=== PATIENT | male | born 1965 | race Caucasian/White ===

== ENCOUNTER 2017-12-18 18:54 | Inpatient (IN) ==
[2017-12-18] MEDS ORDERED: Naloxone 0.4 MG/ML INJ IVP PRN (21:56)
[2017-12-18] MEDS ORDERED: *HR* LORazepam 2 MG/ML VIAL IVP PRN ×4 (21:58→22:25)
[2017-12-18] MEDS ORDERED: Ketorolac 15 MG/ML VIAL IVP ONE (22:03)
[2017-12-18] MEDS ORDERED: Potassium Chloride 40 MEQ, Lidocaine 1% 2 ML in D5% in Water 500 ML IVPB ONE (22:10)
[2017-12-18 22:42] LABS: Potassium,Urine 19.9 mEq/L; Sodium, Urine 76.8 mEq/L
--- NOTE | 2017-12-18 22:44 | Internal Med History&Physical ---
Date of Encounter: 12/19/17 Time of Encounter: 22:00 Assessment and Plan (1) Hyponatremia Current visit: Yes Status: Acute Acute hyponatremia [facility] neurological [place] - generalized seizure The patient presented with seizure and was found to have Serum Sodium of 114 This appears to be euvolemic hyponatremia, possibly due to increased free water vs alcoholism Prior to arrival at [facility], patient received 3% saline, which brought his serum sodium to 118 on arrival Patient is placed in ICU for repletion of sodium and other serum electrolytes Consult to nephrology, Dr. Coleman recommendations: -Slow repletion of sodium, <6-8 in first 24/hr to goal of at least 120 -Observe closely in order to prevent overcorrection, watch for urine output -Order TSH, Serum fasting cortisol, uric acid, Urine electrolytes We will monitor BMP q1h until sodium is regular, and then will transition to q4h (2) Generalized seizure Current visit: Yes Status: Acute Generalized seizure, tonic-clonic, witnessed Likely secondary to hyponatremia vs. EtOH withdrawal Patient says he's never had a similar episode Received phenytoin in ED, is on CIWA protocol with PRN ativan We will provide cautious nutrient supplementation Neuro check q2 hour (3) Fever Current visit: Yes Status: Acute Fever 103.1, likely secondary to seizure activity Although the patient has fever, tachycardia, tachypnea, and borderline WBC, it is likely due to other causes These criteria can be explained by EtOH withdrawal + postictal reactive inflammatory response We have given the patient tylenol and mortin which seem to be effective in managing the fever We will check blood cultures, respiratory viral panel, repeat CXR, and UA for cryptogenic sources of infection We will hold antibiotic treatment pending evidence of infection Qualifiers: Fever type: unspecified Qualified Code(s): R50.9 - Fever, unspecified (4) Alcoholism /alcohol abuse Current visit: Yes Status: Acute Alcohol dependence, Admit to 6-7 beers per day On arrival, patient had serum EtOH of 38, apparently refused EMS transport without a beer before We placed the patient on CIWA protocol, and will monitor closely. Treat with Ativan for symptoms. The patient did present with generalized seizure which may have occurred due to EtOH withdrawal vs. hyponatremia (5) Protein-calorie malnutrition Current visit: Yes Status: Chronic Protein-calorie malnutrition We will provide nutrition consult Supplement relevant nutrients Qualifiers: Protein-calorie malnutrition severity: moderate Qualified Code(s): E44.0 - Moderate protein-calorie malnutrition (6) Transaminitis Current visit: Yes Status: Acute Transaminitis, AST 64/ALT 36 The patient is a chronic abuser of EtOH, which is the likely source There is no obvious hepatomegaly on exam, no RUQ pain Patient does not appear jaundiced, bilirubin is in normal limits, Ammonia within normal limits We will continue to watch, check another hepatic panel in the morning (7) DVT prophylaxis Current visit: Yes Status: Acute SQ Heparin Internal Medicine - H&P: HPI Chief complaint: Headache and vision changes Admitted From: Emergency Dept Plans for Post Hospital Care: Home History of present illness: Mr. Dudley is a 52 year old male with questionable medical history significant for hypertension, alcohol dependence who presented to the [place] ED with what he says her symptoms of headache and visual changes. He associated these symptoms with high blood pressure, which he says that he has had issues with before. It has been going on for several years he said, and he has these episodes pretty frequently. He says that he has had problems with chronic headaches, visual changes that come and go. Today when he noticed the symptoms , he did check his blood pressure which was extremely elevated and he says. He was transported to the hospital by EMS, at which time he demanded that he continue to drink a beer prior to transport. He denies any losses of consciousness, confusion. He says that he has never had any seizures before. He does admit to frequent falls, with the last fall being approximately 1 month ago. He says they are generally mechanical in nature because he has what he calls a "bad hip". He denies any trauma or hits to the head. Apparently, upon arrival to the [place] ED, the patient entered a generalized tonic-clonic seizure which lasted for approximately 30 seconds. Labs at the ED demonstrated hyponatremia with a serum sodium of 114. He was initiated on phenytoin and hypertonic saline prior to transfer to the ICU and [facility]. At this time he says that he continues to have a mild headache but otherwise is feeling relatively okay. Past Med Surg Social Fam HX - Past Medical History Medical history: diabetes, hypertension Psychiatric history: no psych history - Social History Smoking Status: Current every day smoker Alcohol use: heavy, recent Drug use: unknown Internal Medicine - H&P: Meds No Known Home Drugs 12/18/17 [History] 3 Allergy/AdvReac Type Severity Reaction Status Date / Time No Known Allergies Allergy Verified 12/18/17 15:47 All Systems PM: A 10-system review of systems was performed and is negative for pertinent findings except as documented above in the HPI. Review of systems: Constitutional: Denies fevers, chills, weight loss, generalized fatigue Head/Neck: Admits to mild headache. Denies neck stiffness EENT: Denies vision changes/blurriness, rhinorrhea, congestion, sore throat CVS: Admits to chest pain which is intermittent, Denies palpitations, HICKS, orthopnea, edema, PND Pulm: Denies SOB, cough, sputum, hemoptysis, wheezing GI: Denies abdominal pain, nausea, vomiting, diarrhea, constipation, melena, hematemasis : Admits to urinary incontinence, no other symptoms Heme: Denies ease of bleeding or bruising MSK: Denies joint pain, limited ROM Skin: Denies rashes, ulcers, color changes Neuro: Admits to RODRIGEZ, visual changes, tremor. focal deficits, ataxia - Constitutional Vitals: Pulse 104 12/18/17 22:11 Exam: Gen.: Vitals noted. No acute distress. AAOx3 but mild delay in reaction time and requires frequent redirection. There is no asterixis HEENT: Touches chin to chest without pain, Oropharynx clear, Normocephalic, atraumatic. Pupils anicteric Neck: Supple. No adenopathy. Cardiac: RRR, no murmur, +S1/S2 Pulmonary: CTA bilaterally, no wheezes, rales or rhonchi, equal chest expansion Abdomen: soft, nontender, BS noted, no guarding Back: Nontender throughout. Extremities: no BLE edema, nontender calf, no cyanosis or clubbing Neuro: A&Ox3, PERRL/EOMI with horizontal nystagmus present, moves all extremities, no focal deficits. Tremor is present in all extremities Psych: Appropriate mood and behavior Internal Med - H&P Results - Labs CBC & Chem 7: 12/18/17 22:36 12/19/17 01:49
[2017-12-18 22:47] LABS: Basophils % 0.2 %; Hematocrit 36.4 % (37.5-50.1); Hemoglobin 13.2 g/dL (12.9-16.9); Immature Granulocytes % 0.6 % (0-4); Lymphocytes % 7.9 %; Mean Corpuscular HGB Conc 36.3 g/dL (31.6-35.5); Mean Corpuscular Hemoglobin 33.4 pg (28.0-33.3); Mean Corpuscular Volume 92.2 fL (83.0-100.0); Mean Platelet Volume 8.9 fL (9.4-12.4); Monocytes # 0.6 K/mcL (0.0-1.3); Monocytes % 5.2 %; Neutrophils # 10.4 K/mcL (1.6-8.9); Platelet Count 126 K/mcL (140-400); Red Blood Count 3.95 M/mcL (4.19-5.50); Red Cell Distribution Width 12.5 % (11.5-14.5); Segmented Neutrophils % 86.1 %
[2017-12-18 23:15] LABS: Alanine Aminotransferase 35 Units/L (7-52); Albumin 3.1 g/dL (3.5-5.7); Alkaline Phosphatase 76 Units/L (34-104); Aspartate Amino Transferase 69 Units/L (13-39); BUN/Creatinine Ratio 4 (6-26); Bilirubin,Direct 0.2 mg/dL (0.0-0.2); Bilirubin,Indirect 0.5 mg/dL (0.0-1.2); Bilirubin,Total 0.7 mg/dL (0.3-1.0); Blood Urea Nitrogen 2 mg/dL (6-20); Calcium 7.9 mg/dL (8.6-10.3); Carbon Dioxide 23 mEq/L (23-29); Chloride 89 mEq/L (98-107); Globulin 3.1 g/dL (2.4-3.5); Glucose 97 mg/dL (70-105); Magnesium 1.6 mg/dL (1.6-2.6); Osmolality,Calculated 246 (280-300); Potassium 3.2 mEq/L (3.5-5.1); Sodium 120 mEq/L (136-145); Total Protein 6.2 g/dL (6.4-8.9); eGFR For African Americans > 60 (> 60); eGFR For Non-African Americans > 60 (> 60)
[2017-12-18 23:23] LABS: ABG Base Excess -2 mEq/L (-2 to 3); ABG HCO3 21 mEq/L (21-27); ABG Oxygen Saturation 96 % (95-98); ABG PCO2 29 mmHg (35-45); ABG PH 7.47 pH Units (7.32-7.45); ABG PO2 74 mmHg (85-104); ABG TCO2 22 mEq/L (20-26)
[2017-12-19 00:57] LABS: Uric Acid 3.7 mg/dL (2.3-7.6)
[2017-12-19 01:01] LABS: BUN/Creatinine Ratio 6 (6-26); Blood Urea Nitrogen 2 mg/dL (6-20); Calcium 7.5 mg/dL (8.6-10.3); Carbon Dioxide 20 mEq/L (23-29); Chloride 90 mEq/L (98-107); Glucose 104 mg/dL (70-105); Osmolality,Calculated 242 (280-300); Potassium 2.9 mEq/L (3.5-5.1); Sodium 118 mEq/L (136-145); eGFR For African Americans > 60 (> 60); eGFR For Non-African Americans > 60 (> 60)
[2017-12-19] MEDS ORDERED: 0.9 % Sodium Chloride 1,000 ML IVC SCH (01:15)
[2017-12-19 01:20] LABS: Thyroid Stimulating Hormone 0.858 mcIU/mL (0.340-5.600)
[2017-12-19] MEDS: 0.9 % Sodium Chloride 1,000 ML IVC SCH ×2 (01:42→14:42)
[2017-12-19 02:18] LABS: BUN/Creatinine Ratio 6 (6-26); Blood Urea Nitrogen 2 mg/dL (6-20); Calcium 7.6 mg/dL (8.6-10.3); Carbon Dioxide 21 mEq/L (23-29); Chloride 92 mEq/L (98-107); Glucose 120 mg/dL (70-105); Osmolality,Calculated 243 (280-300); Potassium 3.2 mEq/L (3.5-5.1); Sodium 118 mEq/L (136-145); eGFR For African Americans > 60 (> 60); eGFR For Non-African Americans > 60 (> 60)
[2017-12-19 03:25] LABS: BUN/Creatinine Ratio 6 (6-26); Blood Urea Nitrogen 2 mg/dL (6-20); Calcium 7.4 mg/dL (8.6-10.3); Carbon Dioxide 18 mEq/L (23-29); Chloride 93 mEq/L (98-107); Glucose 115 mg/dL (70-105); Osmolality,Calculated 243 (280-300); Potassium 3.7 mEq/L (3.5-5.1); Sodium 118 mEq/L (136-145); eGFR For African Americans > 60 (> 60); eGFR For Non-African Americans > 60 (> 60)
[2017-12-19 04:35] LABS: Adenovirus Not Detected (Not Detect); Coronavirus 229E Not Detected (Not Detect); Coronavirus HKU1 Not Detected (Not Detect); Coronavirus NL63 Not Detected (Not Detect); Coronavirus OC43 Not Detected (Not Detect); Human Metapneumovirus Not Detected (Not Detect)
[2017-12-19 04:36] LABS: Bordetella Pertussis Not Detected (Not Detect); Chlamydophila pneumoniae Not Detected (Not Detect); Human Rhinovirus/Enterovirus Not Detected (Not Detect); Influenza A Subtype 2009 H1 Not Detected (Not Detect); Influenza A Untypeable Not Detected (Not Detect); Influenza B ***DETECTED*** (Not Detect); Mycoplasma pneumoniae Not Detected (Not Detect); Parainfluenza Virus 1 Not Detected (Not Detect); Parainfluenza Virus 2 Not Detected (Not Detect); Parainfluenza Virus 3 Not Detected (Not Detect); Parainfluenza Virus 4 Not Detected (Not Detect); Respiratory Syncytial Virus Not Detected (Not Detect)
[2017-12-19] MEDS: *HR* Heparin 5,000 UNIT/ML VIAL SQ SCH ×2 (05:45→16:50)
[2017-12-19 06:25] LABS: BUN/Creatinine Ratio 5 (6-26); Blood Urea Nitrogen 2 mg/dL (6-20); Calcium 7.9 mg/dL (8.6-10.3); Carbon Dioxide 22 mEq/L (23-29); Chloride 94 mEq/L (98-107); Glucose 83 mg/dL (70-105); Osmolality,Calculated 245 (280-300); Potassium 3.6 mEq/L (3.5-5.1); Sodium 120 mEq/L (136-145); eGFR For African Americans > 60 (> 60); eGFR For Non-African Americans > 60 (> 60)
[2017-12-19] MEDS: Thiamine (B-1) 100 MG TABLET PO SCH (07:31)
[2017-12-19] MEDS: Ibuprofen 400 MG TABLET PO PRN ×2 (07:32→19:44)
[2017-12-19] MEDS: Vitamin B Complex/Vit C/Vit E 1 EACH TABLET PO SCH (07:32)
[2017-12-19] MEDS: Folic Acid 1 MG TABLET PO SCH (07:32)
[2017-12-19 09:35] LABS: BUN/Creatinine Ratio 7 (6-26); Blood Urea Nitrogen 2 mg/dL (6-20); Calcium 7.7 mg/dL (8.6-10.3); Carbon Dioxide 19 mEq/L (23-29); Chloride 93 mEq/L (98-107); Glucose 88 mg/dL (70-105); Osmolality,Calculated 244 (280-300); Potassium 3.2 mEq/L (3.5-5.1); eGFR For African Americans > 60 (> 60); eGFR For Non-African Americans > 60 (> 60)
[2017-12-19 09:47] LABS: Bilirubin,Urine Negative (Negative); Blood,Urine Small (Negative); Clarity,Urine Cloudy (Clear); Color,Urine Yellow (Yellow); Glucose,Urine (UA) Normal (Normal); Ketones,Urine Negative (Negative); Leukocyte Esterase,Urine Large (Negative); Nitrite,Urine Negative (Negative); PH,Urine 6.5 pH Units (5.0-8.0); Protein,Urine Negative (Neg-Trace); Specific Gravity,Urine 1.013 (1.010-1.025); Urobilinogen,Urine Normal (Normal)
[2017-12-19 09:48] LABS: Hyaline Casts,Urine None Seen per lpf (None-Few); Squamous Epithelial Cell,Urine Moderate per lpf (None-Few); WBC,Urine TNTC per hpf (0-3)
[2017-12-19 10:01] LABS: Bacteria,Urine Moderate per hpf (None-Few); RBC,Urine 0-3 per hpf (0-3)
[2017-12-19 10:25] LABS: BUN/Creatinine Ratio 6 (6-26); Blood Urea Nitrogen 2 mg/dL (6-20); Calcium 7.7 mg/dL (8.6-10.3); Carbon Dioxide 19 mEq/L (23-29); Chloride 94 mEq/L (98-107); Glucose 89 mg/dL (70-105); Osmolality,Calculated 248 (280-300); Potassium 3.1 mEq/L (3.5-5.1); Sodium 121 mEq/L (136-145); eGFR For African Americans > 60 (> 60); eGFR For Non-African Americans > 60 (> 60)
[2017-12-19 12:45] LABS: BUN/Creatinine Ratio 6 (6-26); Blood Urea Nitrogen 2 mg/dL (6-20); Calcium 7.9 mg/dL (8.6-10.3); Carbon Dioxide 20 mEq/L (23-29); Chloride 95 mEq/L (98-107); Glucose 82 mg/dL (70-105); Osmolality,Calculated 249 (280-300); Potassium 3.2 mEq/L (3.5-5.1); Sodium 122 mEq/L (136-145); eGFR For African Americans > 60 (> 60); eGFR For Non-African Americans > 60 (> 60)
--- NOTE | 2017-12-19 13:31 | Nephrology Consult Note ---
Date of Encounter: 12/19/17 Time of Encounter: 12:00 Assessment and Plan (1) Hyponatremia Current Visit: Yes Status: Acute Acute symptomatic hyponatremia in the setting of EtOH abuse and poor nutritional status likely beer potomania Agree with correction of approx. 6-8 in the first 24hrs since initial presentation in [facility] Agree with IVF with 0.9 saline for now Needs nutritional supplements as well, dietitian consulted and will order per nurse Urine and serum osm noted Urine sodium noted will add salt tabs to regimen (2) Alcoholism /alcohol abuse Current Visit: Yes Status: Acute Per primary team with ativan regimen. Folate, MVI and thiamine on board History of Present Illness - Reason for Consult Consult date: 12/19/17 hyponatremia Requesting physician: Leoncio Mathews - History of Present Illness 52 y o male with PMH of EtOH abuse and admitted overnight with headaches and dizziness as a transfer from [facility] where he was noted with sodium of 114. He received hypertonic saline and on presentation to [facility], sodium was 120 fluctuating from 118 1-120 overnight on 0.9 saline complicated by seizures overnight. Pt seen and examined today and able to answer some questions though restless and a poor historian. Most of the information obtained from records. No family present at bedside. Previous labs from 2013 showed sodium at 129 then. He apparently drinks up to 7 beers daily. Past Med Surg Social Fam HX - Past Medical History Medical history: diabetes, hypertension Psychiatric history: no psych history - Past Surgical History Surgical History: cholecystectomy - Social History Smoking Status: Current every day smoker Packs per day: 2 Alcohol use: heavy, recent Drug use: unknown Medications and Allergies No Known Home Drugs 12/18/17 [History] 3 Allergy/AdvReac Type Severity Reaction Status Date / Time No Known Allergies Allergy Verified 12/18/17 15:47 Review of Systems All Systems: reviewed and no additional remarkable complaints except as stated ( 10 systems reviewe and noted in HPI) Exam - Vital Signs Vital signs: Initial Vital Signs Temp Pulse Resp BP Pulse Ox 102.2 F H 104 24 150/90 96 12/18/17 22:08 12/18/17 22:08 12/18/17 22:08 12/18/17 22:08 12/18/17 22:08 Vital Signs - Last 8 Hours Temp Pulse Resp BP Pulse Ox 12/19/17 12:00 87 23 102/69 12/19/17 11:00 89 16 105/68 93 12/19/17 10:00 103 19 126/88 94 12/19/17 09:00 99.1 F 103 18 122/81 95 12/19/17 08:00 101.1 F H 117 15 118/91 94 12/19/17 07:00 105 19 140/91 94 12/19/17 06:00 117 24 143/99 95 Intake and Output 12/18/17 12/19/17 12/19/17 23:59 07:59 15:59 Intake Total 50 / 50 972 / 972 340 / 340 Output Total 900 / 900 1180 / 1180 460 / 460 Balance -850 / -850 -208 / -208 -120 / -120 Intake: IV Fluids 922 / 922 0.9 % Sodium Chloride 1,000 ML 350 / 350 @ 85 mls/hr IVC .[id number] [facility] Rx #:[id number] Magnesium Sulfate Premix 2gm/ 50 / 50 50mL 2 gm In 50 ml @ 48.077 mls /hr IVPB ONCE ONE Rx#: [id number] KCl 40 MEQ Xylocaine 2 ML In 522 / 522 Dextrose 5% 500 ML @ 130.5 mls/ hr IVPB ONCE ONE Rx#:[id number] Oral 50 / 50 50 / 50 340 / 340 Output: Urine 200 / 200 Catheter 700 / 700 1180 / 1180 460 / 460 Other: Meal Breakfast Percent of Meal Consumed 25% Weight 66.4 kg Blood Glucose* 102 93 - General Appearance General appearance: chronically ill (NAD) EENT: ATNC, mucous membranes dry Neck: no JVD, supple Cardiology: no edema, normal S1, normal S2 Gastrointestinal: no tenderness, no guarding Integumentary: warm and dry Neurologic: no focal deficit Musculoskeletal: no deformities Psychiatric: cooperative Results - Lab Results 12/18/17 22:36 12/19/17 12:22 Most recent lab results ABG pH 7.47 pH Units (7.32-7.45) H 12/18/17 23:18 ABG pCO2 29 mmHg (35-45) L 12/18/17 23:18 ABG pO2 74 mmHg (85-104) L 12/18/17 23:18 ABG HCO3 21 mEq/L (21-27) 12/18/17 23:18 ABG O2 Saturation 96 % (95-98) 12/18/17 23:18 Calcium 7.9 mg/dL (8.6-10.3) L 12/19/17 12:22 Magnesium 1.6 mg/dL (1.6-2.6) 12/18/17 22:36 Urine Creatinine 32 mg/dL 12/18/17 22:10 Urine Sodium 76.8 mEq/L 12/18/17 22:10 Consult Discharge Plan - Plan Referrals: Jozef Lee DO [Primary Care Provider] -
--- NOTE | 2017-12-19 14:24 | Internal Med Progress Note ---
Date of Encounter: 12/19/17 Time of Encounter: 11:00 - Assessment and plan (1) Hyponatremia Current Visit: Yes Status: Acute Assessment and plan: -Sodium gradually improving on normal saline IV fluids -We will continue to monitor -Nephrology consulted and appreciate recommendations. (2) Generalized seizure Current Visit: Yes Status: Acute Assessment and plan: -Suspect secondary to hyponatremia versus alcohol withdrawal -Patient with no further episodes -We will continue to monitor (3) Influenza B Current Visit: Yes Status: Acute Assessment and plan: -Continue a 5 day course of Tamiflu (4) Alcoholism /alcohol abuse Current Visit: Yes Status: Acute Assessment and plan: -Continue CIWA protocol (5) Protein-calorie malnutrition Current Visit: Yes Status: Chronic Assessment and plan: -Nutrition consulted and appreciate recommendations Qualifiers: Protein-calorie malnutrition severity: moderate Qualified Code(s): E44.0 - Moderate protein-calorie malnutrition (6) DVT prophylaxis Current Visit: Yes Status: Acute Assessment and plan: Subcutaneous heparin - Subjective Interval history: Patient admitted with seizures secondary to hyponatremia versus alcohol withdrawal Sodium gradually improving and pacer without any further seizures Patient is influenza B+ - Constitutional Vitals: Temp Pulse Resp BP Pulse Ox 99.1 F 87 23 102/69 93 12/19/17 09:00 12/19/17 12:00 12/19/17 12:00 12/19/17 12:00 12/19/17 11:00 - Respiratory Respiratory exam: Present: CTAB. Absent: accessory muscle use, rales, rhonchi, wheezes - Cardiovascular Cardiovascular exam: Present: RRR, +S1, +S2. Absent: diastolic murmur, gallop, rubs, systolic murmur Internal Medicine: Result - Labs CBC & Chem 7: 12/18/17 22:36 12/19/17 12:22 Labs: Short CBC 12/18/17 Range/Units 22:36 WBC 12.1 H (4.3-11.1) K/mcL Hgb 13.2 (12.9-16.9) g/dL Hct 36.4 L (37.5-50.1) % Plt Count 126 L (140-400) K/mcL Neutrophils # 10.4 H (1.6-8.9) K/mcL BMP 02/16/18 02/17/18 02/17/18 22:36 00:00 01:49 Sodium 120 L* 118 L* 118 L* Potassium 3.2 L 2.9 L 3.2 L Chloride 89 L 90 L 92 L Carbon Dioxide 23 20 L 21 L BUN 2 L 2 L 2 L Creatinine 0.45 L 0.35 L 0.34 L Glucose 97 104 120 H Calcium 7.9 L 7.5 L 7.6 L 12/19/17 12/19/17 12/19/17 02:48 05:47 08:10 Sodium 118 L* 120 L* 119 L* Potassium 3.7 3.6 3.2 L Chloride 93 L 94 L 93 L Carbon Dioxide 18 L 22 L 19 L BUN 2 L 2 L 2 L Creatinine 0.33 L 0.37 L 0.29 L Glucose 115 H 83 88 Calcium 7.4 L 7.9 L 7.7 L 12/19/17 12/19/17 10:02 12:22 Sodium 121 L 122 L Potassium 3.1 L 3.2 L Chloride 94 L 95 L Carbon Dioxide 19 L 20 L BUN 2 L 2 L Creatinine 0.31 L 0.31 L Glucose 89 82 Calcium 7.7 L 7.9 L Cardiac Enzymes 12/19/17 12/19/17 Range/Units 00:00 05:46 Troponin I < 0.03 < 0.03 (< 0.04) ng/mL Liver Function 12/18/17 Range/Units 22:36 Total Bilirubin 0.7 (0.3-1.0) mg/dL Direct Bilirubin 0.2 (0.0-0.2) mg/dL AST 69 H (13-39) Units/L ALT 35 (7-52) Units/L Alkaline Phosphatase 76 (34-104) Units/L Albumin 3.1 L (3.5-5.7) g/dL Urine 12/18/17 Range/Units 22:10 Urine Color Yellow (Yellow) Urine Clarity Cloudy A (Clear) Urine pH 6.5 (5.0-8.0) pH Units Ur Specific [place] 1.013 (1.010-1.025) Urine Protein Negative (Neg-Trace) mg/dL Urine Glucose (UA) Normal (Normal) mg/dL - ABG Interpretation ABG results: ABG ABG pH 7.47 pH Units (7.32-7.45) H 12/18/17 23:18 ABG pCO2 29 mmHg (35-45) L 12/18/17 23:18 ABG pO2 74 mmHg (85-104) L 12/18/17 23:18 ABG O2 Saturation 96 % (95-98) 12/18/17 23:18 - Impressions Impressions Chest X-Ray 12/18/17 22:22 IMPRESSION: Stable small focus of ill-defined density just above the left hemidiaphragm. Upright two view chest would be more helpful Otherwise, there are no findings diagnostic of pulmonary edema or pneumonia D/ / Rom Álvarez / Rom Álvarez Interpreting Provider: Rom Álvarez Consult Discharge Plan - Plan Referrals: Jozef Lee DO [Primary Care Provider] -
[2017-12-19 14:53] LABS: BUN/Creatinine Ratio 6 (6-26); Blood Urea Nitrogen 2 mg/dL (6-20); Calcium 7.8 mg/dL (8.6-10.3); Carbon Dioxide 22 mEq/L (23-29); Chloride 96 mEq/L (98-107); Glucose 112 mg/dL (70-105); Osmolality,Calculated 253 (280-300); Potassium 2.9 mEq/L (3.5-5.1); Sodium 123 mEq/L (136-145); eGFR For African Americans > 60 (> 60); eGFR For Non-African Americans > 60 (> 60)
[2017-12-19] MEDS: Dexmedetomidine HCl 400 MCG/100 ML MLS IVC SCH (15:36)
[2017-12-19] MEDS: Nicotine 21 MG PATCH.TD24 TD SCH (15:38)
[2017-12-19 17:03] LABS: Calcium 7.9 mg/dL (8.6-10.3); Carbon Dioxide 23 mEq/L (23-29); Chloride 96 mEq/L (98-107); Potassium 3.3 mEq/L (3.5-5.1); Sodium 123 mEq/L (136-145)
[2017-12-19 17:08] LABS: BUN/Creatinine Ratio 5 (6-26); Blood Urea Nitrogen 2 mg/dL (6-20); Glucose 86 mg/dL (70-105); Osmolality,Calculated 251 (280-300); eGFR For African Americans > 60 (> 60); eGFR For Non-African Americans > 60 (> 60)
[2017-12-19 18:25] LABS: BUN/Creatinine Ratio 7 (6-26); Blood Urea Nitrogen 2 mg/dL (6-20); Calcium 7.7 mg/dL (8.6-10.3); Carbon Dioxide 21 mEq/L (23-29); Chloride 96 mEq/L (98-107); Glucose 111 mg/dL (70-105); Osmolality,Calculated 253 (280-300); Potassium 2.9 mEq/L (3.5-5.1); Sodium 123 mEq/L (136-145); eGFR For African Americans > 60 (> 60); eGFR For Non-African Americans > 60 (> 60)
[2017-12-19 18:35] LABS: Acinetobacter baumannii by PCR Not Detected (Not Detect); Candida albicans by PCR Not Detected (Not Detect); Candida glabrata by PCR Not Detected (Not Detect); Candida krusei by PCR Not Detected (Not Detect); Candida parapsilosis by PCR Not Detected (Not Detect); Candida tropicalis by PCR Not Detected (Not Detect); Enterococcus by PCR Not Detected (Not Detect); Escherichia coli by PCR Not Detected (Not Detect); Klebsiella oxytoca by PCR Not Detected (Not Detect); Klebsiella pneumoniae by PCR Not Detected (Not Detect); Pseudomonas aeruginosa by PCR Not Detected (Not Detect); Serratia marcescens by PCR Not Detected (Not Detect); Staphylococcus aureus by PCR Not Detected (Not Detect); Streptococcus agalactiae(B)PCR Not Detected (Not Detect); Streptococcus by PCR Not Detected (Not Detect); Streptococcus pneumoniae PCR Not Detected (Not Detect); Streptococcus pyogenes (A) PCR Not Detected (Not Detect); mecA Methicillin-Resist Gene Not Detected (Not Detect)
[2017-12-19] MEDS ORDERED: Vancomycin 1 EACH in 0.9 % Sodium Chloride 250 ML IVPB SCH (19:00)
[2017-12-19] MEDS ORDERED: Potassium Chloride 40 MEQ, Lidocaine 1% 2 ML in D5% in Water 500 ML IVPB ONE (19:33)
[2017-12-19 20:22] LABS: BUN/Creatinine Ratio 7 (6-26); Blood Urea Nitrogen 2 mg/dL (6-20); Calcium 7.6 mg/dL (8.6-10.3); Carbon Dioxide 21 mEq/L (23-29); Chloride 96 mEq/L (98-107); Glucose 88 mg/dL (70-105); Osmolality,Calculated 252 (280-300); Sodium 123 mEq/L (136-145); eGFR For African Americans > 60 (> 60); eGFR For Non-African Americans > 60 (> 60)
[2017-12-19 22:50] LABS: BUN/Creatinine Ratio 7 (6-26); Blood Urea Nitrogen 2 mg/dL (6-20); Calcium 7.3 mg/dL (8.6-10.3); Carbon Dioxide 22 mEq/L (23-29); Chloride 98 mEq/L (98-107); Glucose 111 mg/dL (70-105); Osmolality,Calculated 253 (280-300); Potassium 3.2 mEq/L (3.5-5.1); Sodium 123 mEq/L (136-145); eGFR For African Americans > 60 (> 60); eGFR For Non-African Americans > 60 (> 60)
[2017-12-20 00:56] LABS: BUN/Creatinine Ratio 6 (6-26); Blood Urea Nitrogen 2 mg/dL (6-20); Calcium 7.3 mg/dL (8.6-10.3); Carbon Dioxide 21 mEq/L (23-29); Chloride 98 mEq/L (98-107); Glucose 105 mg/dL (70-105); Osmolality,Calculated 253 (280-300); Potassium 3.4 mEq/L (3.5-5.1); Sodium 123 mEq/L (136-145); eGFR For African Americans > 60 (> 60); eGFR For Non-African Americans > 60 (> 60)
[2017-12-20] MEDS: 0.9 % Sodium Chloride 1,000 ML IVC SCH ×3 (03:00→23:44)
[2017-12-20 04:07] LABS: BUN/Creatinine Ratio 6 (6-26); Blood Urea Nitrogen 2 mg/dL (6-20); Calcium 7.5 mg/dL (8.6-10.3); Carbon Dioxide 22 mEq/L (23-29); Chloride 99 mEq/L (98-107); Glucose 77 mg/dL (70-105); Osmolality,Calculated 253 (280-300); Potassium 3.3 mEq/L (3.5-5.1); Sodium 124 mEq/L (136-145); eGFR For African Americans > 60 (> 60); eGFR For Non-African Americans > 60 (> 60)
[2017-12-20 04:22] LABS: Basophils % 0.3 %; Hematocrit 32.7 % (37.5-50.1); Hemoglobin 11.6 g/dL (12.9-16.9); Immature Granulocytes % 0.8 % (0-4); Immature Platelets 2.6 % (1.1-6.1); Lymphocytes % 15.8 %; Mean Corpuscular HGB Conc 35.5 g/dL (31.6-35.5); Mean Corpuscular Hemoglobin 33.6 pg (28.0-33.3); Mean Corpuscular Volume 94.8 fL (83.0-100.0); Mean Platelet Volume 8.7 fL (9.4-12.4); Monocytes # 0.6 K/mcL (0.0-1.3); Monocytes % 8.6 %; Neutrophils # 4.9 K/mcL (1.6-8.9); Platelet Count 119 K/mcL (140-400); Red Blood Count 3.45 M/mcL (4.19-5.50); Red Cell Distribution Width 12.7 % (11.5-14.5); Segmented Neutrophils % 74.5 %
[2017-12-20] MEDS: *HR* Heparin 5,000 UNIT/ML VIAL SQ SCH ×2 (05:19→15:38)
[2017-12-20 05:20] LABS: BUN/Creatinine Ratio 6 (6-26); Blood Urea Nitrogen 2 mg/dL (6-20); Calcium 7.6 mg/dL (8.6-10.3); Carbon Dioxide 20 mEq/L (23-29); Chloride 100 mEq/L (98-107); Glucose 75 mg/dL (70-105); Osmolality,Calculated 253 (280-300); Potassium 3.4 mEq/L (3.5-5.1); Sodium 124 mEq/L (136-145); eGFR For African Americans > 60 (> 60); eGFR For Non-African Americans > 60 (> 60)
[2017-12-20] MEDS ORDERED: Aminoglycoside Consult 1 EACH MC ONE (07:35)
[2017-12-20] MEDS: Folic Acid 1 MG TABLET PO SCH (08:22)
[2017-12-20] MEDS: Vitamin B Complex/Vit C/Vit E 1 EACH TABLET PO SCH (08:22)
[2017-12-20] MEDS: Nicotine 21 MG PATCH.TD24 TD SCH (08:22)
[2017-12-20] MEDS: Thiamine (B-1) 100 MG TABLET PO SCH (08:22)
[2017-12-20] MEDS: Ibuprofen 400 MG TABLET PO PRN ×2 (10:31→23:42)
[2017-12-20 10:53] LABS: Sodium 119 mEq/L (136-145)
--- NOTE | 2017-12-20 11:22 | Nephrology Progress Note ---
Date of Encounter: 12/20/17 Time of Encounter: 11:00 - Assessment and Plan (1) Hyponatremia Current Visit: Yes Status: Acute Sodium improving at 124 currently Continue IVF with NS for now Continue salt tabs Continue serial checks but can reduce frequency Needs nutritional supplements (2) Alcoholism /alcohol abuse Current Visit: Yes Status: Acute Per primary team on ativan, thiamine, folate and MVI along with ativan regimen Subjective Interval history: Pt seen and examined resting comfortably but arousable. Objective - Vital Signs Vital signs: Vital Signs Temp Pulse Resp BP Pulse Ox 12/20/17 10:00 100.6 F H 109 15 134/91 97 12/20/17 09:00 89 30 125/85 95 12/20/17 08:07 100.1 F H 12/20/17 08:00 84 28 113/69 95 12/20/17 07:00 90 22 115/85 96 12/20/17 06:00 92 20 99/81 93 12/20/17 05:00 87 22 117/81 96 12/20/17 04:00 87 18 126/84 97 12/20/17 03:00 98.9 F 79 20 102/70 97 12/20/17 02:00 78 22 98/70 96 12/20/17 01:00 89 20 115/81 94 12/20/17 00:00 90 20 107/78 97 12/19/17 23:33 98.6 F 12/19/17 23:00 82 20 103/66 97 12/19/17 22:00 90 24 93/69 94 12/19/17 21:00 100 20 121/87 96 12/19/17 20:00 105 20 118/90 94 12/19/17 19:07 101.3 F H 12/19/17 19:00 107 24 131/82 95 12/19/17 18:00 122 22 138/106 12/19/17 17:00 114 19 122/92 12/19/17 16:00 99 19 109/70 12/19/17 15:46 98.8 F 12/19/17 15:00 107 20 140/94 12/19/17 14:00 111 16 135/89 12/19/17 13:00 95 20 145/84 12/19/17 12:00 87 23 102/69 Intake and Output 02/12/20/17 12/20/17 23:59 07:59 15:59 Intake Total 300 / 300 1522 / 1522 300.8 / 300.8 Output Total 945 / 945 240 / 240 275 / 275 Balance -645 / -645 1282 / 1282 25.8 / 25.8 Intake: IV Fluids 250 / 250 1522 / 1522 60.8 / 60.8 0.9 % Sodium Chloride 1,000 ML 1000 / 1000 @ 85 mls/hr IVC .[id number] [facility] Rx #:[id number] PRECEDEX Premix 400 mcg In 100 60.8 / 60.8 ml @ 0.2 MCG/KG/HR 3.32 mls/hr IVC .Q24H [facility] Rx#:[id number] KCl 40 MEQ Xylocaine 2 ML In 522 / 522 Dextrose 5% 500 ML @ 130.5 mls/ hr IVPB ONCE ONE Rx#:[id number] Vancocin 1,000 MG In 0.9 % 250 / 250 Sodium Chloride 250 ML @ 167 mls/hr IVPB ONCE ONE Rx#: [id number] Oral 50 / 50 0 / 0 240 / 240 Output: Catheter 945 / 945 240 / 240 275 / 275 Other: Meal Breakfast Percent of Meal Consumed 15% Weight 63.68 kg Blood Glucose* 103 75 Patient Weight 12/20/17 23:59 Weight 63.68 kg - General Appearance General appearance: Present: chronically ill, fatigue EENT: Present: ATNC, mucous membranes moist Neck: Present: no JVD, supple Respiratory: Present: clear Cardiology: Present: no edema, normal S1, normal S2 Gastrointestinal: Present: no tenderness, no guarding Integumentary: Present: warm and dry Neurologic: Present: no focal deficit Musculoskeletal: Present: no deformities Psychiatric: Present: mood/affect appropriate, cooperative - Lab 12/22/17 04:16 12/22/17 04:16 Most recent lab results ABG pH 7.47 pH Units (7.32-7.45) H 12/18/17 23:18 ABG pCO2 29 mmHg (35-45) L 12/18/17 23:18 ABG pO2 74 mmHg (85-104) L 12/18/17 23:18 ABG HCO3 21 mEq/L (21-27) 12/18/17 23:18 ABG O2 Saturation 96 % (95-98) 12/18/17 23:18 Calcium 7.6 mg/dL (8.6-10.3) L 12/20/17 04:08 Magnesium 1.6 mg/dL (1.6-2.6) 12/18/17 22:36 Urine Creatinine 32 mg/dL 12/18/17 22:10 Urine Sodium 76.8 mEq/L 12/18/17 22:10 Consult Discharge Plan - Plan Referrals: Jozef Lee DO [Primary Care Provider] -
[2017-12-20 12:09] LABS: BUN/Creatinine Ratio 5 (6-26); Blood Urea Nitrogen 2 mg/dL (6-20); Calcium 7.9 mg/dL (8.6-10.3); Carbon Dioxide 18 mEq/L (23-29); Chloride 99 mEq/L (98-107); Glucose 73 mg/dL (70-105); Osmolality,Calculated 255 (280-300); Potassium 3.4 mEq/L (3.5-5.1); Sodium 125 mEq/L (136-145); eGFR For African Americans > 60 (> 60); eGFR For Non-African Americans > 60 (> 60)
[2017-12-20 12:12] LABS: BUN/Creatinine Ratio 8 (6-26); Blood Urea Nitrogen 3 mg/dL (6-20); Calcium 7.7 mg/dL (8.6-10.3); Carbon Dioxide 19 mEq/L (23-29); Chloride 99 mEq/L (98-107); Glucose 104 mg/dL (70-105); Osmolality,Calculated 255 (280-300); Potassium 3.2 mEq/L (3.5-5.1); Sodium 124 mEq/L (136-145); eGFR For African Americans > 60 (> 60); eGFR For Non-African Americans > 60 (> 60)
--- NOTE | 2017-12-20 14:32 | Internal Med Progress Note ---
Date of Encounter: 12/20/17 Time of Encounter: 13:00 - Assessment and plan (1) Bacteremia due to Gram-positive bacteria Current Visit: Yes Status: Acute Assessment and plan: Patient found to have gram-positive cocci staphylococcus species and blood cultures on 12/18/17 Patient was started on vancomycin on 12/19/17 after notified of results the evening of 12/19/17 (2) Influenza B Current Visit: Yes Status: Acute Assessment and plan: -Continue a 2 of a 5 day course of Tamiflu (3) Hyponatremia Current Visit: Yes Status: Acute Assessment and plan: -Sodium gradually improving from 120 on 12/18/17-123 on 12/19/17 and now 124 on -Nephrology following with recommendations to continue normal saline IV fluids with salt tablets. -Will continue to monitor (4) Generalized seizure Current Visit: Yes Status: Acute Assessment and plan: -Suspect secondary to hyponatremia versus alcohol withdrawal -Patient with no further episodes -We will continue to monitor (5) Hypokalemia Current Visit: Yes Status: Acute Assessment and plan: -Patient with potassium of 3.2 -Replacements order and we will continue to monitor (6) Alcoholism /alcohol abuse Current Visit: Yes Status: Acute Assessment and plan: -Continue CIWA protocol (7) Protein-calorie malnutrition Current Visit: Yes Status: Chronic Assessment and plan: -Nutrition consulted and appreciate recommendations Qualifiers: Protein-calorie malnutrition severity: moderate Qualified Code(s): E44.0 - Moderate protein-calorie malnutrition (8) DVT prophylaxis Current Visit: Yes Status: Acute Assessment and plan: Subcutaneous heparin - Subjective Interval history: Patient admitted with seizures secondary to hyponatremia versus alcohol withdrawal Sodium gradually improving and pacer without any further seizures Patient is influenza B+ In addition patient also found to have gram-positive cocci staphylococcus species and blood cultures taken on 12/18/17 - Constitutional Vitals: Temp Pulse Resp BP Pulse Ox 99.6 F 101 22 113/80 95 12/20/17 12:00 12/20/17 12:00 12/20/17 12:00 12/20/17 12:00 12/20/17 12:00 General appearance: Present: A&O X 3, no acute distress - Respiratory Respiratory exam: Present: CTAB. Absent: accessory muscle use, rales, rhonchi, wheezes - Cardiovascular Cardiovascular exam: Present: RRR, +S1, +S2. Absent: diastolic murmur, gallop, rubs, systolic murmur Internal Medicine: Result - Labs CBC & Chem 7: 12/20/17 04:08 12/20/17 11:45 Labs: Short CBC 12/20/17 Range/Units 04:08 WBC 6.6 (4.3-11.1) K/mcL Hgb 11.6 L D (12.9-16.9) g/dL Hct 32.7 L (37.5-50.1) % Plt Count 119 L (140-400) K/mcL Neutrophils # 4.9 (1.6-8.9) K/mcL BMP 12/19/17 12/19/17 12/19/17 08:10 14:20 16:38 Sodium 119 L* 123 L 123 L Potassium 2.9 L 3.3 L Chloride 96 L 96 L Carbon Dioxide 22 L 23 BUN 2 L 2 L Creatinine 0.35 L 0.37 L Glucose 112 H 86 Calcium 7.8 L 7.9 L 12/19/17 12/19/17 12/19/17 17:58 19:53 22:19 Sodium 123 L 123 L 123 L Potassium 2.9 L 3.0 L 3.2 L Chloride 96 L 96 L 98 Carbon Dioxide 21 L 21 L 22 L BUN 2 L 2 L 2 L Creatinine 0.29 L 0.30 L 0.28 L Glucose 111 H 88 111 H Calcium 7.7 L 7.6 L 7.3 L 12/20/17 12/20/17 12/20/17 00:29 02:07 04:08 Sodium 123 L 124 L 124 L Potassium 3.4 L 3.3 L 3.4 L Chloride 98 99 100 Carbon Dioxide 21 L 22 L 20 L BUN 2 L 2 L 2 L Creatinine 0.31 L 0.35 L 0.34 L Glucose 105 77 75 Calcium 7.3 L 7.5 L 7.6 L 12/20/17 12/20/17 08:48 11:45 Sodium 125 L 124 L Potassium 3.4 L 3.2 L Chloride 99 99 Carbon Dioxide 18 L 19 L BUN 2 L 3 L Creatinine 0.39 L 0.39 L Glucose 73 104 Calcium 7.9 L 7.7 L - ABG Interpretation ABG results: ABG ABG pH 7.47 pH Units (7.32-7.45) H 12/18/17 23:18 ABG pCO2 29 mmHg (35-45) L 12/18/17 23:18 ABG pO2 74 mmHg (85-104) L 12/18/17 23:18 ABG O2 Saturation 96 % (95-98) 12/18/17 23:18 Consult Discharge Plan - Plan Referrals: Jozef Lee DO [Primary Care Provider] -
[2017-12-20] MEDS: Dexmedetomidine HCl 400 MCG/100 ML MLS IVC SCH (15:37)
[2017-12-20 17:14] LABS: BUN/Creatinine Ratio 13 (6-26); Blood Urea Nitrogen 5 mg/dL (6-20); Calcium 7.9 mg/dL (8.6-10.3); Carbon Dioxide 21 mEq/L (23-29); Chloride 100 mEq/L (98-107); Glucose 129 mg/dL (70-105); Osmolality,Calculated 257 (280-300); Potassium 3.2 mEq/L (3.5-5.1); Sodium 124 mEq/L (136-145); eGFR For African Americans > 60 (> 60); eGFR For Non-African Americans > 60 (> 60)
[2017-12-20] MEDS: Benzonatate 100 MG CAPSULE PO PRN (19:40)
[2017-12-20 21:12] LABS: BUN/Creatinine Ratio 8 (6-26); Blood Urea Nitrogen 3 mg/dL (6-20); Calcium 7.7 mg/dL (8.6-10.3); Carbon Dioxide 20 mEq/L (23-29); Chloride 101 mEq/L (98-107); Glucose 127 mg/dL (70-105); Osmolality,Calculated 258 (280-300); Potassium 3.2 mEq/L (3.5-5.1); Sodium 125 mEq/L (136-145); eGFR For African Americans > 60 (> 60); eGFR For Non-African Americans > 60 (> 60)
[2017-12-21 01:16] LABS: BUN/Creatinine Ratio 6 (6-26); Blood Urea Nitrogen 2 mg/dL (6-20); Calcium 7.5 mg/dL (8.6-10.3); Carbon Dioxide 21 mEq/L (23-29); Chloride 99 mEq/L (98-107); Glucose 111 mg/dL (70-105); Osmolality,Calculated 257 (280-300); Potassium 2.9 mEq/L (3.5-5.1); Sodium 125 mEq/L (136-145); eGFR For African Americans > 60 (> 60); eGFR For Non-African Americans > 60 (> 60)
[2017-12-21 05:25] LABS: BUN/Creatinine Ratio 6 (6-26); Blood Urea Nitrogen 2 mg/dL (6-20); Calcium 7.6 mg/dL (8.6-10.3); Carbon Dioxide 22 mEq/L (23-29); Chloride 102 mEq/L (98-107); Glucose 92 mg/dL (70-105); Osmolality,Calculated 264 (280-300); Potassium 2.9 mEq/L (3.5-5.1); Sodium 129 mEq/L (136-145); eGFR For African Americans > 60 (> 60); eGFR For Non-African Americans > 60 (> 60)
[2017-12-21] MEDS: *HR* Heparin 5,000 UNIT/ML VIAL SQ SCH ×2 (06:23→19:54)
[2017-12-21] MEDS ORDERED: Levofloxacin 750 MG/150 ML 750 MG/150 ML BAG IVPB SCH (09:00)
[2017-12-21] MEDS: Vitamin B Complex/Vit C/Vit E 1 EACH TABLET PO SCH (09:35)
[2017-12-21] MEDS: Thiamine (B-1) 100 MG TABLET PO SCH (09:35)
[2017-12-21] MEDS: Folic Acid 1 MG TABLET PO SCH (09:35)
[2017-12-21] MEDS: Nicotine 21 MG PATCH.TD24 TD SCH (09:35)
[2017-12-21 09:46] LABS: Basophils % 0.8 %; Eosinophils % 0.2 %; Hematocrit 34.3 % (37.5-50.1); Hemoglobin 11.9 g/dL (12.9-16.9); Immature Granulocytes % 0.4 % (0-4); Immature Platelets 2.3 % (1.1-6.1); Lymphocytes # 1.6 K/mcL (0.6-4.6); Lymphocytes % 30.4 %; Mean Corpuscular HGB Conc 34.7 g/dL (31.6-35.5); Mean Corpuscular Hemoglobin 33.2 pg (28.0-33.3); Mean Corpuscular Volume 95.8 fL (83.0-100.0); Mean Platelet Volume 8.5 fL (9.4-12.4); Monocytes # 0.5 K/mcL (0.0-1.3); Platelet Count 151 K/mcL (140-400); Red Blood Count 3.58 M/mcL (4.19-5.50); Red Cell Distribution Width 13.1 % (11.5-14.5); Segmented Neutrophils % 58.2 %
[2017-12-21 10:41] LABS: Platelet Estimate Slight Decrease (Normal); Toxic Granulation Present (Not Present)
[2017-12-21] MEDS: 0.9 % Sodium Chloride 1,000 ML IVC SCH ×2 (13:06→23:26)
[2017-12-21] MEDS: Dexmedetomidine HCl 400 MCG/100 ML MLS IVC SCH (16:33)
--- NOTE | 2017-12-21 17:42 | Nephrology Progress Note ---
Date of Encounter: 12/21/17 Time of Encounter: 12:00 - Assessment and Plan (1) Hyponatremia Current Visit: Yes Status: Acute Sodium improving at 129 currently Continue IVF with NS for now Continue salt tabs Continue nutritional supplements (2) Alcoholism /alcohol abuse Current Visit: Yes Status: Acute Per primary team on ativan, thiamine, folate and MVI along with ativan regimen Subjective Interval history: Pt seen and examined much more awake and talkative Objective - Vital Signs Vital signs: Vital Signs Temp Pulse Resp BP Pulse Ox 12/21/17 15:56 99.7 F H 12/21/17 14:51 93 12/21/17 14:41 97 20 138/90 95 12/21/17 13:00 88 20 144/96 95 12/21/17 12:32 98.6 F 12/21/17 11:49 82 12/21/17 11:00 82 20 134/104 95 12/21/17 10:00 78 20 153/97 95 12/21/17 09:00 80 20 133/95 95 12/21/17 08:49 90 12/21/17 08:10 97.9 F 12/21/17 06:00 64 20 116/70 95 12/21/17 05:00 63 23 117/69 92 12/21/17 04:59 98.1 F 12/21/17 04:00 64 22 123/68 92 12/21/17 03:00 74 20 104/70 94 12/21/17 02:00 68 22 124/66 93 12/21/17 01:00 96 22 115/77 96 12/21/17 00:00 101.3 F H 95 20 146/86 93 12/20/17 23:58 95 12/20/17 23:00 93 22 126/93 98 12/20/17 22:00 98 20 134/84 97 12/20/17 21:00 93 20 140/86 94 12/20/17 20:08 105 12/20/17 20:00 99.1 F 106 20 138/79 98 12/20/17 19:00 106 20 133/76 99 12/20/17 18:00 96 141/85 98 Intake and Output 12/21/17 12/21/17 12/21/17 07:59 15:59 23:59 Intake Total 1120 / 1120 Output Total 700 / 700 1650 / 1650 Balance -700 / -700 -530 / -530 Intake: IV Fluids 1000 / 1000 0.9 % Sodium Chloride 1,000 ML 1000 / 1000 @ 85 mls/hr IVC .[id number] [facility] Rx #:[id number] PRECEDEX Premix 400 mcg In 100 0 / 0 ml @ 0.2 MCG/KG/HR 3.32 mls/hr IVC .Q24H [facility] Rx#:[id number] Oral 120 / 120 Output: Catheter 700 / 700 1650 / 1650 Other: Percent of Meal Consumed 35% Weight 65.6 kg Blood Glucose* 230 Patient Weight 12/21/17 23:59 Weight 65.6 kg - General Appearance General appearance: Present: chronically ill EENT: Present: ATNC, mucous membranes moist Neck: Present: no JVD, supple Respiratory: Present: clear Cardiology: Present: no edema, normal S1, normal S2 Gastrointestinal: Present: no tenderness, no guarding Integumentary: Present: warm and dry Neurologic: Present: no focal deficit Musculoskeletal: Present: no deformities Psychiatric: Present: mood/affect appropriate, cooperative - Lab 12/22/17 04:16 12/22/17 04:16 Most recent lab results ABG pH 7.47 pH Units (7.32-7.45) H 12/18/17 23:18 ABG pCO2 29 mmHg (35-45) L 12/18/17 23:18 ABG pO2 74 mmHg (85-104) L 12/18/17 23:18 ABG HCO3 21 mEq/L (21-27) 12/18/17 23:18 ABG O2 Saturation 96 % (95-98) 12/18/17 23:18 Calcium 7.6 mg/dL (8.6-10.3) L 12/21/17 04:54 Magnesium 1.6 mg/dL (1.6-2.6) 12/18/17 22:36 Urine Creatinine 32 mg/dL 12/18/17 22:10 Urine Sodium 76.8 mEq/L 12/18/17 22:10 - VTE Documentation of Mechanical Device: Intermittent pneumatic compression device Consult Discharge Plan - Plan Referrals: Jozef Lee DO [Primary Care Provider] -
[2017-12-21] MEDS ORDERED: Potassium Chloride 40 MEQ, Lidocaine 1% 2 ML in D5% in Water 500 ML IVPB ONE (19:24)
--- NOTE | 2017-12-21 19:28 | Internal Med Progress Note ---
Date of Encounter: 12/21/17 Time of Encounter: 11:00 - Assessment and plan (1) Bacteremia due to Gram-positive bacteria Current Visit: Yes Status: Acute Assessment and plan: Patient found to have gram-positive cocci staphylococcus species and blood cultures on 12/18/17 Suspect to be a contaminant therefore all antibiotics discontinued (2) Influenza B Current Visit: Yes Status: Acute Assessment and plan: -Continue a 3 of a 5 day course of Tamiflu (3) Hyponatremia Current Visit: Yes Status: Acute Assessment and plan: -Sodium gradually improving from 120 on 12/18/17-123 on 12/19/17 , 124 on 12/20/17 and now 129 on 12/21/17 -Nephrology following with recommendations to continue normal saline IV fluids with salt tablets. -Will continue to monitor (4) Generalized seizure Current Visit: Yes Status: Acute Assessment and plan: -Suspect secondary to hyponatremia versus alcohol withdrawal -Patient with no further episodes -We will continue to monitor (5) Hypokalemia Current Visit: Yes Status: Acute Assessment and plan: -Patient with potassium of 2.9 -Replacements order and we will continue to monitor (6) Alcoholism /alcohol abuse Current Visit: Yes Status: Acute Assessment and plan: -Continue CIWA protocol (7) Protein-calorie malnutrition Current Visit: Yes Status: Chronic Assessment and plan: -Nutrition consulted and appreciate recommendations Qualifiers: Protein-calorie malnutrition severity: moderate Qualified Code(s): E44.0 - Moderate protein-calorie malnutrition (8) DVT prophylaxis Current Visit: Yes Status: Acute Assessment and plan: Subcutaneous heparin - Subjective Interval history: Patient admitted with seizures secondary to hyponatremia versus alcohol withdrawal Sodium gradually improving and pacer without any further seizures Patient is influenza B+ In addition patient also found to have gram-positive cocci staphylococcus species and blood cultures taken on 12/18/17 - Constitutional Vitals: Temp Pulse Resp BP Pulse Ox 99.7 F H 91 18 169/112 99 12/21/17 15:56 12/21/17 19:10 12/21/17 19:10 12/21/17 19:10 12/21/17 19:10 General appearance: Present: A&O X 3, no acute distress - Respiratory Respiratory exam: Present: CTAB. Absent: accessory muscle use, rales, rhonchi, wheezes - Cardiovascular Cardiovascular exam: Present: RRR, +S1, +S2. Absent: diastolic murmur, gallop, rubs, systolic murmur - GI/Abdominal GI/Abdominal exam: Present: normal bowel sounds, soft, no peritoneal signs. Absent: distended, tenderness Internal Medicine: Result - Labs CBC & Chem 7: 12/21/17 09:20 12/21/17 04:54 Labs: Short CBC 12/21/17 Range/Units 09:20 WBC 5.2 (4.3-11.1) K/mcL Hgb 11.9 L (12.9-16.9) g/dL Hct 34.3 L (37.5-50.1) % Plt Count 151 (140-400) K/mcL Neutrophils # 3.0 (1.6-8.9) K/mcL BMP 12/20/17 12/21/17 12/21/17 20:34 00:31 04:54 Sodium 125 L 125 L 129 L Potassium 3.2 L 2.9 L 2.9 L Chloride 101 99 102 Carbon Dioxide 20 L 21 L 22 L BUN 3 L 2 L 2 L Creatinine 0.38 L 0.32 L 0.34 L Glucose 127 H 111 H 92 Calcium 7.7 L 7.5 L 7.6 L - ABG Interpretation ABG results: ABG ABG pH 7.47 pH Units (7.32-7.45) H 12/18/17 23:18 ABG pCO2 29 mmHg (35-45) L 12/18/17 23:18 ABG pO2 74 mmHg (85-104) L 12/18/17 23:18 ABG O2 Saturation 96 % (95-98) 12/18/17 23:18 - VTE Documentation of Mechanical Device: Intermittent pneumatic compression device Consult Discharge Plan - Plan Referrals: Jozef Lee DO [Primary Care Provider] -
[2017-12-21] MEDS ORDERED: Lisinopril 20 MG TABLET PO SCH (19:30)
[2017-12-21] MEDS: Benzonatate 100 MG CAPSULE PO PRN (20:14)
[2017-12-22] MEDS: *HR* Heparin 5,000 UNIT/ML VIAL SQ SCH ×2 (04:55→18:04)
[2017-12-22 05:09] LABS: Basophils % 0.5 %; Eosinophils % 0.3 %; Hematocrit 31.2 % (37.5-50.1); Hemoglobin 10.9 g/dL (12.9-16.9); Immature Granulocytes % 0.8 % (0-4); Lymphocytes # 2.9 K/mcL (0.6-4.6); Lymphocytes % 46.4 %; Mean Corpuscular HGB Conc 34.9 g/dL (31.6-35.5); Mean Corpuscular Hemoglobin 33.2 pg (28.0-33.3); Mean Corpuscular Volume 95.1 fL (83.0-100.0); Mean Platelet Volume 8.8 fL (9.4-12.4); Monocytes # 0.8 K/mcL (0.0-1.3); Monocytes % 13.3 %; Platelet Count 140 K/mcL (140-400); Red Blood Count 3.28 M/mcL (4.19-5.50); Red Cell Distribution Width 12.9 % (11.5-14.5); Segmented Neutrophils % 38.7 %
[2017-12-22 05:11] LABS: Neutrophils # 2.4 K/mcL (1.6-8.9)
[2017-12-22 05:38] LABS: Large Platelets Present (Not Present); Platelet Estimate Decreased (Normal)
[2017-12-22 05:58] LABS: BUN/Creatinine Ratio 5 (6-26); Blood Urea Nitrogen 2 mg/dL (6-20); Calcium 7.9 mg/dL (8.6-10.3); Carbon Dioxide 23 mEq/L (23-29); Chloride 102 mEq/L (98-107); Glucose 92 mg/dL (70-105); Osmolality,Calculated 262 (280-300); Potassium 3.7 mEq/L (3.5-5.1); Sodium 128 mEq/L (136-145); eGFR For African Americans > 60 (> 60); eGFR For Non-African Americans > 60 (> 60)
[2017-12-22] MEDS: Thiamine (B-1) 100 MG TABLET PO SCH (08:48)
[2017-12-22] MEDS: Folic Acid 1 MG TABLET PO SCH (08:48)
[2017-12-22] MEDS: Nicotine 21 MG PATCH.TD24 TD SCH (08:49)
[2017-12-22] MEDS: Vitamin B Complex/Vit C/Vit E 1 EACH TABLET PO SCH (08:50)
--- NOTE | 2017-12-22 10:09 | Internal Med Progress Note ---
<Leoncio Moulton - Last Filed: 12/22/17 10:06> Date of Encounter: 12/22/17 Time of Encounter: 10:06 - Assessment and plan (1) Generalized seizure Current Visit: Yes Status: Acute Assessment and plan: Prior to arrival. Hyponatremia versus alcohol withdrawal however after review the records patient was given 3% normal saline which stopped his seizure activity. Patient also states that his last drink was several hours prior to onset of his seizures and he has never had a history of alcohol withdrawal. This makes me think that his seizures are more related to his hyponatremia than his alcohol withdrawal. Hyponatremia improving as discussed above. No evidence of seizure activity since admission. (2) Hyponatremia Current Visit: Yes Status: Acute Assessment and plan: Likely related to beer photomania. Improving, sodium 128 today. We will hold IV fluids for now and continue sodium tablets as the patient is tolerating diet well. Appreciate nephrology recommendations. (3) Influenza B Current Visit: Yes Status: Acute Assessment and plan: Likely contributing to the patient's poor oral intake and dehydration. Today's day 4 of 5 of Tamiflu treatments. (4) Bacteremia due to Gram-positive bacteria Current Visit: Yes Status: Acute Assessment and plan: One out of 2 blood cultures positive for staph capitis. Repeat blood cultures are negative, no other signs of infection including fever or leukocytosis. Likely related to contamination. We will continue to monitor for signs of infection but antibiotics have been discontinued. (5) Alcoholism /alcohol abuse Current Visit: Yes Status: Acute Assessment and plan: Possibly contributing to the patient's seizures but I do feel seizure activity was more related to hyponatremia. No withdrawal symptoms since admission and has not required any Ativan for withdrawal symptoms. Continue to encourage alcohol cessation, continue vitamin supplementation. (6) Protein-calorie malnutrition Current Visit: Yes Status: Chronic Assessment and plan: Likely due to decreased oral intake and poor diet in the setting of alcohol abuse. Appreciate nutrition recommendations, continue ensure with meals Qualifiers: Protein-calorie malnutrition severity: severe Qualified Code(s): E43 - Unspecified severe protein-calorie malnutrition - Subjective Interval history: Patient seen and examined at bedside. Patient states that he feels pretty good today. No seizure activity since admission. Patient denies any alcohol withdrawal symptoms. Patient is tolerating diet well. - Constitutional Vitals: Temp Pulse Resp BP Pulse Ox 99.2 F 75 16 132/88 96 12/22/17 08:00 12/22/17 08:01 12/22/17 08:01 12/22/17 08:01 12/22/17 08:01 General appearance: Present: A&O X 3, no acute distress - Respiratory Respiratory exam: Present: CTAB. Absent: rales, rhonchi, wheezes - Cardiovascular Cardiovascular exam: Present: RRR. Absent: gallop, rubs, systolic murmur - GI/Abdominal GI/Abdominal exam: Present: normal bowel sounds, soft. Absent: distended, tenderness - Extremities Exam Extremities exam: Present: warm. Absent: pedal edema, tenderness - Neurological Exam Neurological exam: Present: alert, CN II-XII intact, oriented X3, no focal deficits Internal Medicine: Result - Labs CBC & Chem 7: 12/22/17 04:16 12/22/17 04:16 Labs: Short CBC 12/21/17 12/22/17 Range/Units 09:20 04:16 WBC 6.3 (4.3-11.1) K/mcL Hgb 10.9 L (12.9-16.9) g/dL Hct 31.2 L (37.5-50.1) % Plt Count 140 (140-400) K/mcL Neutrophils # 3.0 2.4 (1.6-8.9) K/mcL BMP 12/22/17 04:16 Sodium 128 L Potassium 3.7 D Chloride 102 Carbon Dioxide 23 BUN 2 L Creatinine 0.37 L Glucose 92 Calcium 7.9 L - ABG Interpretation ABG results: ABG ABG pH 7.47 pH Units (7.32-7.45) H 12/18/17 23:18 ABG pCO2 29 mmHg (35-45) L 12/18/17 23:18 ABG pO2 74 mmHg (85-104) L 12/18/17 23:18 ABG O2 Saturation 96 % (95-98) 12/18/17 23:18 - VTE Documentation of Mechanical Device: Intermittent pneumatic compression device Consult Discharge Plan - Plan Referrals: Jozef Lee DO [Primary Care Provider] - <Tc Badillo - Last Filed: 12/22/17 14:34> Date of Encounter: 12/22/17 - Assessment and plan (1) Hyponatremia Current Visit: Yes Status: Acute (2) Influenza B Current Visit: Yes Status: Acute (3) Generalized seizure Current Visit: Yes Status: Resolved (4) Alcoholism /alcohol abuse Current Visit: Yes Status: Chronic (5) Transaminitis Current Visit: Yes Status: Resolved (6) Protein-calorie malnutrition Current Visit: Yes Status: Chronic Qualifiers: Protein-calorie malnutrition severity: severe Qualified Code(s): E43 - Unspecified severe protein-calorie malnutrition (7) Anemia Current Visit: Yes Status: Chronic Qualifiers: Anemia type: other cause Other causes of anemia: chronic disease, other Qualified Code(s): D63.8 - Anemia in other chronic diseases classified elsewhere (8) Hypokalemia Current Visit: Yes Status: Resolved - Constitutional Vitals: Temp Pulse Resp BP Pulse Ox 98.6 F 86 98 140/96 96 12/22/17 11:37 12/22/17 11:40 12/22/17 11:40 12/22/17 11:40 12/22/17 08:01 Internal Medicine: Result - Labs CBC & Chem 7: 12/22/17 04:16 12/22/17 04:16 Labs: Short CBC 12/22/17 Range/Units 04:16 WBC 6.3 (4.3-11.1) K/mcL Hgb 10.9 L (12.9-16.9) g/dL Hct 31.2 L (37.5-50.1) % Plt Count 140 (140-400) K/mcL Neutrophils # 2.4 (1.6-8.9) K/mcL BMP 12/22/17 04:16 Sodium 128 L Potassium 3.7 D Chloride 102 Carbon Dioxide 23 BUN 2 L Creatinine 0.37 L Glucose 92 Calcium 7.9 L - ABG Interpretation ABG results: ABG ABG pH 7.47 pH Units (7.32-7.45) H 12/18/17 23:18 ABG pCO2 29 mmHg (35-45) L 12/18/17 23:18 ABG pO2 74 mmHg (85-104) L 12/18/17 23:18 ABG O2 Saturation 96 % (95-98) 12/18/17 23:18 - Attending Attestation I examined this patient and my medical decision-making was reviewed with the Resident Physician on 12/22/17. I agree with the documented findings, disposition and treatment plan as described except to the extent set forth below. Mr Dudley is currently admitted for acute hyponatremia, influenza B and chronic alcohol abuse. He remains moderate to high risk due to potential for worsening clinical and neuro status. Mr Dudley feels OK. Denies pain. No fever or chills at this time. Sodium stable. Eating some. Exam alert. Comfortable Mucus membranes dry Heart reg Lungs clear at this time Abd soft and nontender No edema I/P 1. Hyponatremia - on salt tablets and IV fluids. Received 3% sodium infusion after seizure. Continue current management 2. Seizure - most likely related to hyponatremia 3. Chronic alcohol abuse Further diagnoses and plan as above.
--- NOTE | 2017-12-22 11:21 | Nephrology Progress Note ---
Date of Encounter: 12/22/17 Time of Encounter: 11:00 - Assessment and Plan (1) Hyponatremia Status: Acute Sodium slightly worse at 128, will monitor Ok to stop IVF if eating well Continue salt tabs Continue nutritional supplements (2) Alcoholism /alcohol abuse Status: Chronic Per primary team on ativan, thiamine, folate and MVI along with ativan regimen Subjective Interval history: Pt seen and examined with no new complaints Objective - Vital Signs Vital signs: Vital Signs Temp Pulse Resp BP Pulse Ox 12/22/17 08:01 75 16 132/88 96 12/22/17 08:00 99.2 F 12/22/17 05:00 65 12/22/17 03:40 72 16 132/88 96 12/22/17 03:17 99.2 F 12/22/17 01:00 75 12/21/17 23:20 98.8 F 81 16 127/82 95 12/21/17 21:00 89 18 132/83 96 12/21/17 19:18 98.5 F 12/21/17 19:10 91 18 169/112 99 12/21/17 15:56 99.7 F H 12/21/17 14:51 93 12/21/17 14:41 97 20 138/90 95 12/21/17 13:00 88 20 144/96 95 12/21/17 12:32 98.6 F 12/21/17 11:49 82 Intake and Output 12/21/17 12/22/17 12/22/17 23:59 07:59 15:59 Intake Total 1792 / 1792 60 / 60 Output Total 750 / 750 400 / 400 800 / 800 Balance 1042 / 1042 -340 / -340 -800 / -800 Intake: IV Fluids 1552 / 1552 60 / 60 0.9 % Sodium Chloride 1,000 ML 1000 / 1000 @ 85 mls/hr IVC .[id number] [facility] Rx #:[id number] PRECEDEX Premix 400 mcg In 100 30 / 30 60 / 60 ml @ 0.2 MCG/KG/HR 3.32 mls/hr IVC .Q24H [facility] Rx#:[id number] KCl 40 MEQ Xylocaine 2 ML In 522 / 522 Dextrose 5% 500 ML @ 130.5 mls/ hr IVPB ONCE ONE Rx#:[id number] Oral 240 / 240 Output: Catheter 750 / 750 400 / 400 800 / 800 Other: Meal Lunch Percent of Meal Consumed 15% Weight 66.5 kg Blood Glucose* 103 87 Patient Weight 12/22/17 23:59 Weight 66.5 kg - General Appearance General appearance: Present: chronically ill EENT: Present: ATNC, mucous membranes moist Neck: Present: no JVD, supple Respiratory: Present: clear Cardiology: Present: no edema, normal S1, normal S2 Gastrointestinal: Present: no tenderness, no guarding Integumentary: Present: warm and dry Neurologic: Present: no focal deficit Musculoskeletal: Present: no deformities Psychiatric: Present: mood/affect appropriate - Lab 12/22/17 04:16 12/23/17 04:55 Most recent lab results ABG pH 7.47 pH Units (7.32-7.45) H 12/18/17 23:18 ABG pCO2 29 mmHg (35-45) L 12/18/17 23:18 ABG pO2 74 mmHg (85-104) L 12/18/17 23:18 ABG HCO3 21 mEq/L (21-27) 12/18/17 23:18 ABG O2 Saturation 96 % (95-98) 12/18/17 23:18 Calcium 7.9 mg/dL (8.6-10.3) L 12/22/17 04:16 Magnesium 1.6 mg/dL (1.6-2.6) 12/18/17 22:36 Urine Creatinine 32 mg/dL 12/18/17 22:10 Urine Sodium 76.8 mEq/L 12/18/17 22:10 - VTE Documentation of Mechanical Device: Intermittent pneumatic compression device Consult Discharge Plan - Plan Instructions: Oseltamivir (By mouth), Hyponatremia (DC), Influenza (DC) Additional Instructions: Please follow-up with your PCP within one week. Please have your labs drawn prior to seeing your primary care physician Please take sodium tablets and vitamins daily. Please complete your Tamiflu tonight. Please abstain from alcohol. Please eat a well-balanced diet. Please return for any new or worsening symptoms. Referrals: Rudolph Castellano [Other] - 12/31/17 2:45 pm (Patients PCP, f/u within 1 week) Prescriptions: Folic Acid 1 mg PO DAILY #30 tablet Oseltamivir [Tamiflu] 75 mg PO BID #1 capsule Sodium Chloride 1 gm PO BID #30 tablet Thiamine (B-1) [Vitamin B-1] 100 mg PO DAILY #30 tablet
[2017-12-22] MEDS ORDERED: Chloraseptic Spray 177 ML BOTTLE MM PRN (14:03)
[2017-12-22] MEDS: Dexmedetomidine HCl 400 MCG/100 ML MLS IVC SCH (17:54)
--- NOTE | 2017-12-23 02:06 | Electrocardiograph Report ---
[address] [place], [place] [address] Test Date: 2017-12-18 Pat Name: Ernst Dudley Department: [id number] Room: [facility] Gender: M Clinical Research Manager: [id number] : 1965 Requested By: Leoncio Mathews Order Number: [id number] Reading MD: Renae Alvarado Measurements Intervals [place] Rate: 89 P: 71 MO: 191 QRS: 81 QRSD: 106 T: 72 QT: 360 QTc: 407 Interpretive Statements SINUS RHYTHM SEPTAL MYOCARDIAL INFARCTION, PROBABLY OLD Electronically Signed On 12-23-2017 2:04:57 EST by Renae Alvarado
[2017-12-23 05:46] LABS: BUN/Creatinine Ratio 6 (6-26); Blood Urea Nitrogen 2 mg/dL (6-20); Calcium 8.2 mg/dL (8.6-10.3); Carbon Dioxide 23 mEq/L (23-29); Chloride 100 mEq/L (98-107); Glucose 89 mg/dL (70-105); Osmolality,Calculated 264 (280-300); Sodium 129 mEq/L (136-145); eGFR For African Americans > 60 (> 60); eGFR For Non-African Americans > 60 (> 60)
[2017-12-23] MEDS: *HR* Heparin 5,000 UNIT/ML VIAL SQ SCH (06:14)
[2017-12-23 07:01] VITALS: BP 157/95
[2017-12-23] MEDS ORDERED: D5% in Water 1,000 ML IVC PRN (07:55)
[2017-12-23] MEDS ORDERED: Dextrose Gel 15 GM/37.5 ML TUBE PO PRN ×2 (07:55)
[2017-12-23] MEDS ORDERED: *HR* Dextrose 50 % in Water (Syg) 50 ML SYRINGE IVP PRN (07:55)
[2017-12-23] MEDS ORDERED: Insulin LISPRO 300 UNITS/3 ML VIAL SQ SCH ×2 (08:00→21:00)
--- NOTE | 2017-12-23 08:27 | Discharge Summary ---
<Leoncio Moulton - Last Filed: 12/23/17 08:24> - NOTES TO OUTPATIENT PROVIDER Notes to Outpatient Provider: Please follow up with patients sodium levels Orders not resulted at time of discharge: Pending orders 12/18/17 22:50 Culture,Blood [BC] Stat 12/21/17 09:20 Culture,Blood,Additional [BC] Routine Date of Encounter: 12/23/17 Time of Encounter: 08:24 - Discharge Diagnosis (1) Generalized seizure Priority: Primary Status: Resolved (2) Hyponatremia Priority: Primary Status: Acute (3) Influenza B Priority: Primary Status: Acute (4) Bacteremia due to Gram-positive bacteria Priority: Secondary Status: Resolved (5) Alcoholism /alcohol abuse Priority: Secondary Status: Chronic (6) Protein-calorie malnutrition Priority: Secondary Status: Chronic Qualifiers: Protein-calorie malnutrition severity: severe Qualified Code(s): E43 - Unspecified severe protein-calorie malnutrition Hospital course: Mr. Dudley is a 52 year old male with history of chronic alcohol abuse and poor nutrition presented with generalized seizure at outside Hospital. At the outside facility the patient was found to have a sodium of 114 seizure activity. He was given an unclear amount of 3% saline at which point seizure activity stopped and his sodium had increased to 118. Patient was transferred to our hospital and monitored closely. It was unclear whether his seizure activities related to alcohol withdrawal or hyponatremia however given his response to hypertonic saline and his report that his seizure activity occurred only hours after his most recent drink it would appear that hyponatremia is more likely cause of his sodium. His sodium levels continued to rise an appropriate rate and have stabilized around 130. His entire admission he has had no alcohol withdrawal symptoms or seizure activity. He was seen by the supervisor wire rope fabrication for severe protein calorie malnutrition and was started on nutritional supplementation patient will be discharged home in stable condition. Discharge discussed with: patient, nurse - Time Spent with Patient Total time spent providing and/or coordinating discharge services: 25 minutes - Discharge Medications Prescriptions: Folic Acid 1 mg PO DAILY #30 tablet Oseltamivir [Tamiflu] 75 mg PO BID #1 capsule Sodium Chloride 1 gm PO BID #30 tablet Thiamine (B-1) [Vitamin B-1] 100 mg PO DAILY #30 tablet Home Medications: Folic Acid 1 mg PO DAILY #30 tablet 12/23/17 [Rx] Oseltamivir [Tamiflu] 75 mg PO BID #1 capsule 12/23/17 [Rx] Sodium Chloride 1 gm PO BID #30 tablet 12/23/17 [Rx] Thiamine (B-1) [Vitamin B-1] 100 mg PO DAILY #30 tablet 12/23/17 [Rx] Allergies/Adverse Reactions: 3 Allergy/AdvReac Type Severity Reaction Status Date / Time No Known Allergies Allergy Verified 12/18/17 15:47 Date of admission: 12/18/17 21:38 Primary care physician: Jozef Lee DO Consults: 12/18/17 21:58 Consult to Marine Plumber [CONS] Routine Reason for SW Consult: Alcohol withdrawal 12/19/17 00:44 Consult to Nutrition [CONS] Routine Comment: Consulting Provider: NUTRITION Reason for Dietary Consult: PO Supplementation Diet Education Consult to Occupational Therapy [CONS] Routine Comment: Evaluate, develop and implement POC Reason for Consult: weakness, frequent falls Consult to Physical Therapy [CONS] Routine Comment: Evaluate, develop and implement POC Reason for Consult: weakness, frequent falls 12/19/17 02:21 Consult to Nephrology [CONS] Routine Consulting Provider: Kidney Sherley/BARBARA/FLEX/RAMSEY Reason for Consult: Hyponatremia with seizure Time Notified: 10:30 Call Completed: Yes Discharging clinician: Leoncio Moulton Anticipated date of discharge: 12/23/17 - Constitutional Vitals: Temp Pulse Resp BP Pulse Ox 98.6 F 80 16 157/95 94 12/23/17 06:43 12/23/17 06:43 12/23/17 06:43 12/23/17 06:43 12/23/17 06:43 General appearance: Present: A&O X 3, no acute distress - Respiratory Respiratory exam: Present: CTAB. Absent: rales, rhonchi, wheezes - Cardiovascular Cardiovascular exam: Present: RRR. Absent: gallop, rubs, systolic murmur - GI/Abdominal GI/Abdominal exam: Present: normal bowel sounds, soft. Absent: distended, tenderness - Extremities Exam Extremities exam: Present: warm. Absent: pedal edema, tenderness - Neurological Exam Neurological exam: Present: alert, CN II-XII intact, oriented X3, no focal deficits, strengths equal and symetr throughout. Absent: motor sensory deficit , facial droop, speech deficit - Patient Status Disposition: Home, Self-Care Condition: Good Functional capacity at discharge: independent ambulation Overall status at discharge: patient is progressing back to baseline - Ambulatory Orders Ambulatory Orders: Basic Metabolic Panel [CHEM] Time Frame: 1 Week, Facility: [facility], Location: Lab - Discharge Instructions Instructions: Oseltamivir (By mouth), Hyponatremia (DC), Influenza (DC) Follow Up With: Rudolph Castellano [Other] - 12/31/17 2:45 pm (Patients PCP, f/u within 1 week) Additional Instructions: Please follow-up with your PCP within one week. Please have your labs drawn prior to seeing your primary care physician Please take sodium tablets and vitamins daily. Please complete your Tamiflu tonight. Please abstain from alcohol. Please eat a well-balanced diet. Please return for any new or worsening symptoms. - Diet and Activity Activity: increase activity as tolerated Diet: advance to your usual diet - VTE Documentation of Mechanical Device: Intermittent pneumatic compression device <Tc Badillo - Last Filed: 12/23/17 13:54> Orders not resulted at time of discharge: Pending orders 12/18/17 22:50 Culture,Blood [BC] Stat 12/21/17 09:20 Culture,Blood,Additional [BC] Routine Date of Encounter: 12/23/17 - Discharge Diagnosis (1) Hyponatremia Status: Acute (2) Influenza B Status: Acute (3) Generalized seizure Status: Resolved (4) Alcoholism /alcohol abuse Status: Chronic (5) Transaminitis Status: Resolved (6) Protein-calorie malnutrition Status: Chronic Qualifiers: Protein-calorie malnutrition severity: severe Qualified Code(s): E43 - Unspecified severe protein-calorie malnutrition (7) Anemia Priority: Secondary Status: Chronic Qualifiers: Anemia type: unspecified type Qualified Code(s): D64.9 - Anemia, unspecified (8) Hypokalemia Priority: Secondary Status: Resolved (9) Tobacco abuse Priority: Secondary Status: Chronic Hospital course: Mr. Dudley is a 52 year old male - Time Spent with Patient Total time spent providing and/or coordinating discharge services: Date of admission: 12/18/17 21:38 Primary care physician: Jozef Lee DO Consults: 12/18/17 21:58 Consult to Marine Plumber [CONS] Routine Reason for SW Consult: Alcohol withdrawal 12/19/17 00:44 Consult to Nutrition [CONS] Routine Comment: Consulting Provider: NUTRITION Reason for Dietary Consult: PO Supplementation Diet Education Consult to Occupational Therapy [CONS] Routine Comment: Evaluate, develop and implement POC Reason for Consult: weakness, frequent falls Consult to Physical Therapy [CONS] Routine Comment: Evaluate, develop and implement POC Reason for Consult: weakness, frequent falls 12/19/17 02:21 Consult to Nephrology [CONS] Routine Consulting Provider: Kidney Sherley/ORILI/FLEX/RAMSEY Reason for Consult: Hyponatremia with seizure Time Notified: 10:30 Call Completed: Yes - Constitutional Vitals: Temp Pulse Resp BP Pulse Ox 98.6 F 80 16 157/95 94 12/23/17 06:43 12/23/17 06:43 12/23/17 06:43 12/23/17 06:43 12/23/17 06:43 - Attending Attestation I examined this patient and my medical decision-making was reviewed with the Resident Physician on 12/23/17. I agree with the documented findings, disposition and treatment plan as described except to the extent set forth below. Mr Dudley has been admitted for acute grand mal seizure and hyponatremia. His sodium has been improving and stable. He has significant malnutrition and educated on the need for increased PO intake. He is afebrile and ready for discharge home at this time. Exam Alert. Comfortable Mucus membranes dry Heart reg No wheeze Plan D/C home today Follow up with PCP regarding sodium No alcohol.
--- NOTE | 2017-12-23 10:08 | Nephrology Progress Note ---
Date of Encounter: 12/23/17 Time of Encounter: 10:07 - Assessment and Plan (1) Hyponatremia Current Visit: Yes Status: Acute Subjective Principal diagnosis: hyponatremia Interval history: Patient seen. No new complaint. He is anticipating going home. Objective - Vital Signs Vital signs: Vital Signs Temp Pulse Resp BP Pulse Ox 12/23/17 06:43 98.6 F 80 16 157/95 94 12/23/17 04:36 98.8 F 79 16 137/86 98 12/22/17 23:00 99.4 F 90 24 158/101 97 12/22/17 19:00 99.3 F 80 20 153/99 98 12/22/17 15:17 99.4 F 82 98 164/111 96 12/22/17 11:40 86 98 140/96 12/22/17 11:37 98.6 F Intake and Output 12/22/17 12/23/17 12/23/17 23:59 07:59 15:59 Intake Total 100 / 100 0 / 0 0 / 0 Output Total 650 / 650 0 / 0 0 / 0 Balance -550 / -550 0 / 0 0 / 0 Intake: Oral 100 / 100 0 / 0 0 / 0 Output: Urine 650 / 650 0 / 0 0 / 0 Other: Weight 60.827 kg Patient Weight 12/23/17 23:59 Weight 60.827 kg - General Appearance General appearance: Present: well-developed, well-nourished EENT: Present: ATNC Neck: Present: supple Cardiology: Present: regular rate Neurologic: Present: alert and oriented x3 Psychiatric: Present: mood/affect appropriate - Lab 12/22/17 04:16 12/23/17 04:55 Most recent lab results ABG pH 7.47 pH Units (7.32-7.45) H 12/18/17 23:18 ABG pCO2 29 mmHg (35-45) L 12/18/17 23:18 ABG pO2 74 mmHg (85-104) L 12/18/17 23:18 ABG HCO3 21 mEq/L (21-27) 12/18/17 23:18 ABG O2 Saturation 96 % (95-98) 12/18/17 23:18 Calcium 8.2 mg/dL (8.6-10.3) L 12/23/17 04:55 Magnesium 1.6 mg/dL (1.6-2.6) 12/18/17 22:36 Urine Creatinine 32 mg/dL 12/18/17 22:10 Urine Sodium 76.8 mEq/L 12/18/17 22:10 - VTE Documentation of Mechanical Device: Intermittent pneumatic compression device Consult Discharge Plan - Plan Instructions: Oseltamivir (By mouth), Hyponatremia (DC), Influenza (DC) Additional Instructions: Please follow-up with your PCP within one week. Please have your labs drawn prior to seeing your primary care physician Please take sodium tablets and vitamins daily. Please complete your Tamiflu tonight. Please abstain from alcohol. Please eat a well-balanced diet. Please return for any new or worsening symptoms. Referrals: Rudloph Castellano [Other] - 12/31/17 2:45 pm (Patients PCP, f/u within 1 week) Prescriptions: Folic Acid 1 mg PO DAILY #30 tablet Oseltamivir [Tamiflu] 75 mg PO BID #1 capsule Sodium Chloride 1 gm PO BID #30 tablet Thiamine (B-1) [Vitamin B-1] 100 mg PO DAILY #30 tablet
== END 2017-12-23 10:23 | disposition home or self-care (01) | DRG 640 ==
LOC: ICNU 21:38 → SUATTDRO 21:38 → 2ANU 12-23 03:07
PROVIDERS: ADMIT Internal Medicine; ATTEND Internal Medicine

== ENCOUNTER 2018-01-30 18:27 | Inpatient (IN) ==
[2018-01-30] MEDS ORDERED: *HR* LORazepam 2 MG/ML VIAL ONE (20:27)
--- NOTE | 2018-01-30 21:00 | Internal Med History&Physical ---
Date of Encounter: 01/31/18 Time of Encounter: 07:30 Assessment and Plan (1) Hyponatremia Current visit: No Status: Acute - Most likely secondary to beer potomania in this setting of decreased dietary solute intake (sodium, potassium, protein) and diminished water excretion - We will be very cautious with saline administration due to the risk of spontaneous increase of serum sodium concentration and rapid correction of hyponatremia and therefore increasing the risk of osmotic demyelination syndrome. - The patient was giving a bolus of 3% saline and immediately water diuresis was noted and urine output shrimp picker from 30 mL per hour to 100 mL per hour and serum sodium was corrected by 2 mEq and the duration of one hour. - We will start 1 to 2 mcg of desmopressin, intravenously every six to eight hours for a period of 24 to 48 hours (or until the serum sodium has been increased to at least 125 mEq/L), and we simultaneously administer a slow intravenous infusion of hypertonic saline at 15 to 30 mL/hour. - The rate of infusion of hypertonic saline will be adjusted to achieve the desired rate of correction. We will dDVAP makes the rate of correction resulting from hypertonic saline more predictable since it would prevents the unexpected water diuresis from occurring during the course of therapy. - 24-hour goals for sodium correction is less than 10 mEq/L - 48-hour goals for sodium correction is less than 18 mEq/L (2) Alcoholism /alcohol abuse Current visit: No Status: Chronic We will start SIWA protocol with Ativan (3) Protein-calorie malnutrition Current visit: No Status: Chronic We will consult nutrition for further evaluation and management Qualifiers: Protein-calorie malnutrition severity: severe Qualified Code(s): E43 - Unspecified severe protein-calorie malnutrition (4) Hyperbilirubinemia Current visit: Yes Status: Acute (5) DVT prophylaxis Current visit: No Status: Acute We will place SCDS and start patient on heparin 5000 twice a day Internal Medicine - H&P: HPI Chief complaint: Nausea and vomiting Plans for Post Hospital Care: Home History of present illness: Mr. Dudley is a 52 year old male presents [place] [facility] with complaint of nausea, vomiting and diarrhea associated with abdominal pain and cramping for the last 3 days. He admit to alcohol abuse, he drank 8 beers a day, last alcohol consumption was this morning when he was trying to drink more however he could not tolerated. He was evaluated by the ER staff and his sodium were found to be 115 from his baseline that range around 128. The patient was presented to the hospitalist public relations professional by the ER attending stating that there was no neurological symptoms and patient was accepted to be admitted to the floor, open on arrival the patient was evaluated by myself and by Dr. GUERRA, Pt was oriented to time, person and place. Answers questions shortly, but appropriate answers. Visible tremors. No slurred speech. Extraocular movements not intact. Afferent pupillary defect Unable to follow directions for assessment of pronator drift. Reflexes: Biceps 2+, Patellar 2+. Negative Babinski test. Attention Test : Vigilance 'A' Test - Slowed response. During Mid Exam -- Patient's suddenly clenched eyes and non- verbal to questioning and started having seizures. Rapid Response called and patient was treated by Shira, he was transferred to the intensive care unit for further evaluation and management. The case as well as the tentative assessment and plan was discussed with nephrology public relations professional. Past Med Surg Social Fam HX - Past Medical History Medical history: diabetes, hypertension Psychiatric history: no psych history - Past Surgical History Surgical History: cholecystectomy - Social History Smoking Status: Current every day smoker Smokeless Tobacco Status: Yes Alcohol use: heavy, recent Drug use: unknown Internal Medicine - H&P: Meds Folic Acid 1 mg PO DAILY #30 tablet 12/23/17 [Rx] Oseltamivir [Tamiflu] 75 mg PO BID #1 capsule 12/23/17 [Rx] Sodium Chloride 1 gm PO BID #30 tablet 12/23/17 [Rx] Thiamine (B-1) [Vitamin B-1] 100 mg PO DAILY #30 tablet 12/23/17 [Rx] 3 Allergy/AdvReac Type Severity Reaction Status Date / Time No Known Allergies Allergy Verified 12/18/17 15:47 ROS unobtainable: due to mental status All Systems PM: A 10-system review of systems was performed and is negative for pertinent findings except as documented above in the HPI. - Constitutional Vitals: Temp Pulse Resp BP Pulse Ox 98.4 F 95 20 168/111 97 01/30/18 20:06 01/30/18 20:06 01/30/18 20:30 01/30/18 20:06 01/30/18 20:30 General appearance: Present: A&O X 2 - Head Head exam: Present: atraumatic, normocephalic - Neck Neck exam general surgery: Present: supple, trachea midline. Absent: lymphadenopathy - Respiratory Respiratory exam: Present: CTAB. Absent: accessory muscle use, rales, rhonchi, wheezes - Cardiovascular Cardiovascular exam: Present: RRR, +S1, +S2. Absent: diastolic murmur, gallop, rubs, systolic murmur - GI/Abdominal GI/Abdominal exam: Present: normal bowel sounds, soft, no peritoneal signs. Absent: distended, tenderness - Extremities Exam Extremities exam: Present: warm, radial pulses palpable and symmetrical. Absent : calf tenderness, cyanotic, pedal edema - Neurological Exam Additional comments: Pt oriented to time, person and place. Answers questions shortly, but appropriate answers. Visible tremors. No slurred speech. Extraocular movements not intact. Afferent pupillary defect Unable to follow directions for assessment of pronator drift Reflexes: Biceps 2+, Patellar 2+ Negative Babinski test. Attention Test : Vigilance 'A' Test - Slowed response Mid Exam -- Patient's suddenly clenched eyes and non-verbal to questioning. Rapid Response called. Exam performed by resident MD: Valeri Gibbs MD Internal Med - H&P Results - Labs CBC & Chem 7: 01/31/18 03:10 01/31/18 04:50
--- NOTE | 2018-01-30 21:26 | General Surgery Procedure Note ---
Date of procedure: 01/30/18 Pre-op diagnosis: Hyponatremia Post-op diagnosis: same Procedure: Right subclavian vein CVC placement Complications: none Findings: Identifying the patient and obtaining consent the patient was a subclavian region (upper chest and neck and (were prepped and draped in normal sterile fashion. A timeout identifying the patient procedure was performed and the patient was placed in a Trendelenburg position. 1% lidocaine with epinephrine was used to anesthetize the epidermal and dermal layer along the inferior lateral one third of the right clavicle. The right subclavian vein was then accessed via the Seldinger technique with blood withdrawal and then advancement of a guidewire. There were no EKG changes consistent with advancement of the guidewire into the superior vena cava. A 16 cm triple lumen catheter was advanced over the guidewire secured in place with 3-0 nylon suture. Each port was tested for patency with easy blood withdrawal and infusion of normal saline solution. Capsule placed an OpSite was placed over the insertion site. Chest x -ray pending for placement. Chest x-ray shows no evidence of a pneumothorax. Central line located OK to be used. Anesthesia: local Surgeon: Edgard Hawkins Estimated blood loss (cc): 3 Pathology: none sent Condition: stable Disposition: ICU
[2018-01-30 22:26] LABS: Potassium,Urine 73.8 mEq/L; Sodium, Urine 71.4 mEq/L
[2018-01-30 22:54] LABS: Alanine Aminotransferase 25 Units/L (7-52); Albumin 3.8 g/dL (3.5-5.7); Albumin/Globulin Ratio 1.1 (1.1-2.2); Alkaline Phosphatase 95 Units/L (34-104); Aspartate Amino Transferase 41 Units/L (13-39); BUN/Creatinine Ratio 8 (6-26); Bilirubin,Total 1.6 mg/dL (0.3-1.0); Blood Urea Nitrogen 5 mg/dL (6-20); Carbon Dioxide 19 mEq/L (23-29); Chloride 78 mEq/L (98-107); Globulin 3.4 g/dL (2.4-3.5); Glucose 102 mg/dL (70-105); Osmolality,Calculated 237 (280-300); Potassium 3.7 mEq/L (3.5-5.1); Sodium 115 mEq/L (136-145); Total Protein 7.2 g/dL (6.4-8.9); eGFR For African Americans > 60 (> 60); eGFR For Non-African Americans > 60 (> 60)
[2018-01-30] MEDS ORDERED: *HR* 3% Sodium Chloride 500 ML IV.SOLN IVC STA (22:58)
[2018-01-30] MEDS: Nicotine 14 MG PATCH.TD24 TD SCH (23:50)
[2018-01-31] MEDS ORDERED: Naloxone 0.4 MG/ML INJ IVP PRN (01:27)
[2018-01-31] MEDS ORDERED: DESMOPRESSIN IVPB ONE (02:30)
[2018-01-31] MEDS ORDERED: SODIUM CHLORIDE 0.9% IVPB ONE (02:30)
[2018-01-31] MEDS: SODIUM CHLORIDE 0.9% IVPB SCH ×2 (02:50→11:50)
[2018-01-31] MEDS: DESMOPRESSIN IVPB SCH ×2 (02:50→11:50)
[2018-01-31 03:32] LABS: Hematocrit 37.4 % (37.5-50.1); Hemoglobin 13.6 g/dL (12.9-16.9); Mean Corpuscular HGB Conc 36.4 g/dL (31.6-35.5); Mean Corpuscular Hemoglobin 33.3 pg (28.0-33.3); Mean Corpuscular Volume 91.7 fL (83.0-100.0); Mean Platelet Volume 8.5 fL (9.4-12.4); Platelet Count 205 K/mcL (140-400); Red Blood Count 4.08 M/mcL (4.19-5.50); Red Cell Distribution Width 13.3 % (11.5-14.5)
[2018-01-31 03:46] LABS: Magnesium 1.8 mg/dL (1.6-2.6); Triglycerides 133 mg/dL (< 150)
[2018-01-31 04:22] LABS: INR 1.1; Prothrombin Time 11.9 Seconds (9.4-12.1)
[2018-01-31 05:37] LABS: BUN/Creatinine Ratio 12 (6-26); Blood Urea Nitrogen 5 mg/dL (6-20); Calcium 8.3 mg/dL (8.6-10.3); Carbon Dioxide 22 mEq/L (23-29); Chloride 84 mEq/L (98-107); Glucose 90 mg/dL (70-105); Osmolality,Calculated 241 (280-300); Potassium 3.6 mEq/L (3.5-5.1); Sodium 117 mEq/L (136-145); eGFR For African Americans > 60 (> 60); eGFR For Non-African Americans > 60 (> 60)
[2018-01-31] MEDS: *HR* Heparin 5,000 UNIT/ML VIAL SQ SCH ×2 (05:38→18:06)
--- NOTE | 2018-01-31 07:48 | Pulmonology Consult Note ---
Date of Encounter: 01/31/18 Time of Encounter: 07:30 Assessment and Plan (1) Hyponatremia Current Visit: No Status: Acute hyposmolar hyponatremia most likely due to beer potomania patient has low intake of solute and there is inapropriate ADH secretion . Patient sodium is getting corrected slowly the last sodium is 121 my 24 hrs which is exact 10 pm the maximum sodium should show 125 meq/l. Encourage PO and salt intake will check Serum sodium every 4 hrs after 24 hrs . Appreciate Nephrology recs. (2) Alcoholism /alcohol abuse Current Visit: No Status: Chronic To continue Thiamine and folic acid . (3) Seizures Current Visit: Yes Status: Acute secondary to hyponatremia . CT scan didnt show any acute abnormalities History of Present Illness Consult date: 01/31/18 Requesting physician: Sabine Fajardo Reason for consult: other (altered mental status , hyponatremia ) Chief complaint: Nausea , vomitting , abdominal pain History of present illness: 52 year old male with past medical history significant for chronic alcoholism , chronic malnutrition comes with 3 days of abdominal cramping , nausea and vomitting poor po intake came to the ER found to have low sodium 115 with baseline hyponatremia of 128 initially there was no altered mental status then after he came to the floor he was altered had some convulsions suspected secondary to hyponatremia so it was decided to start 3% hypertonic saline patient sodium slowly getting corrected denies any epigastric pain for now , denies any cough and sputum production , denies any chest pain or tightness , denies any headache , denies any focal neurological deficit . Pulmonary was consulted for intensive care management . Past Med Surg Social Fam HX - Past Medical History Medical history: diabetes, hypertension Psychiatric history: no psych history - Past Surgical History Surgical History: cholecystectomy - Social History Smoking Status: Current every day smoker Smokeless Tobacco Status: Yes Alcohol use: heavy, recent Drug use: unknown Medications and Allergies Folic Acid 1 mg PO DAILY #30 tablet 12/23/17 [Rx] Oseltamivir [Tamiflu] 75 mg PO BID #1 capsule 12/23/17 [Rx] Sodium Chloride 1 gm PO BID #30 tablet 12/23/17 [Rx] Thiamine (B-1) [Vitamin B-1] 100 mg PO DAILY #30 tablet 12/23/17 [Rx] 3 Allergy/AdvReac Type Severity Reaction Status Date / Time No Known Allergies Allergy Verified 12/18/17 15:47 All Systems: The remainder of the systems were reviewed and are negative Physical Examination Vital Signs: Vital Signs, Last 4 Hours Temp Pulse Resp BP Pulse Ox 01/31/18 06:00 92 16 148/99 96 01/31/18 05:00 95 16 152/98 96 01/31/18 04:00 98.7 F 90 17 144/95 96 Auscultation: bilateral: clear Cardiovascular: regular rate and rhythm Results - Laboratory Findings CBC and BMP: 01/31/18 03:10 01/31/18 18:10 PT/INR, D-dimer PT 11.9 Seconds (9.4-12.1) 01/31/18 03:51 Abnormal lab findings: Abnormal lab results RBC 4.08 M/mcL (4.19-5.50) L 01/31/18 03:10 Hct 37.4 % (37.5-50.1) L 01/31/18 03:10 MCHC 36.4 g/dL (31.6-35.5) H 01/31/18 03:10 MPV 8.5 fL (9.4-12.4) L 01/31/18 03:10 Sodium 117 mEq/L (136-145) L* 01/31/18 04:50 Chloride 84 mEq/L (98-107) L 01/31/18 03:10 Carbon Dioxide 22 mEq/L (23-29) L 01/31/18 03:10 BUN 5 mg/dL (6-20) L 01/31/18 03:10 Creatinine 0.41 mg/dL (0.70-1.30) L 01/31/18 03:10 POC Glucose 126 mg/dL (68-89) H 01/30/18 20:53 Serum Osmolality 243 mOsm/kg (280-300) L 01/31/18 00:25 Calculated Osmolality 241 (280-300) L 01/31/18 03:10 Calcium 8.3 mg/dL (8.6-10.3) L 01/31/18 03:10 Total Bilirubin 1.6 mg/dL (0.3-1.0) H 01/30/18 21:50 AST 41 Units/L (13-39) H 01/30/18 21:50 - Clinical Findings Intake & Output: Intake & Output 03/01/30/18 01/31/18 15:59 23:59 07:59 Intake Total 100 / 100 141.5 / 141.5 Output Total 515 / 515 355 / 355 Balance -415 / -415 -213.5 / -213.5 Weight 56.5 kg Consult Discharge Plan - Plan Referrals: NONE,PCP [Primary Care Provider] -
[2018-01-31] MEDS ORDERED: *HR* LORazepam 2 MG/ML VIAL IVP PRN ×3 (09:24)
[2018-01-31] MEDS: Nicotine 14 MG PATCH.TD24 TD SCH (09:31)
--- NOTE | 2018-01-31 13:40 | Nephrology Consult Note ---
Date of Encounter: 01/31/18 Time of Encounter: 12:00 Assessment and Plan (1) Hyponatremia Status: Acute acute on chronic hypernatremia possibly symptomatic in the setting of daily beer consumption along with poor nutrition Agree with hypertonic saline till sodium level at 120 ad stop Will stop desmopressin immediately, no necessary at this time. pt is not correcting rapidly Continue serial sodium checks for now Increase sodium in diet followup workup started (2) Alcoholism /alcohol abuse Status: Chronic Thiamine/folate and MVI advised Withdrawal protocol per primary team (3) Generalized seizure Status: Resolved Likely sodium related vz EtOH, will monitor for any further activity (4) Protein-calorie malnutrition Status: Chronic high protein ensure advised with meals Qualifiers: Protein-calorie malnutrition severity: severe Qualified Code(s): E43 - Unspecified severe protein-calorie malnutrition History of Present Illness - Reason for Consult Consult date: 01/31/18 Requesting physician: Justo Kaur - History of Present Illness 52 y o male with no PMH except for EtOH abuse with daily beer consumption approx. 6-12 bottles (12oz a day) presenting as a transfer from [facility] where he presented for 3 days of N/V/D along with abdominal pain with sodium of 115. Previous baseline appears to be around 128. Pt apparently had a witnessed seisure onarrival [facility] hence hypertonic saline was initiated. Pt seen and examined feeling better and does not recall overnight events. Pt is receiving hypertonic saline along with desmopressin Past Med Surg Social Fam HX - Past Medical History Medical history: diabetes, hypertension Psychiatric history: no psych history - Past Surgical History Surgical History: cholecystectomy - Social History Smoking Status: Current every day smoker Smokeless Tobacco Status: Yes Alcohol use: heavy, recent Drug use: unknown Medications and Allergies Folic Acid 0.4 mg PO DAILY #30 tablet 02/01/18 [Rx] Sodium Chloride 1,000 mg MC BID #60 tablet.araceli 02/01/18 [Rx] Thiamine (B-1) [Vitamin B-1] 100 mg PO DAILY #30 tablet 02/01/18 [Rx] 3 Allergy/AdvReac Type Severity Reaction Status Date / Time No Known Allergies Allergy Verified 12/18/17 15:47 Review of Systems All Systems: reviewed and no additional remarkable complaints except as stated ( 10 system reviewed) Exam - Vital Signs Vital signs: Initial Vital Signs Pulse 90 01/30/18 20:01 Vital Signs - Last 8 Hours Temp Pulse Resp BP Pulse Ox 01/31/18 13:00 111 16 194/85 93 01/31/18 12:00 90 16 153/97 99 01/31/18 11:00 87 16 144/99 98 01/31/18 10:00 87 16 140/96 98 01/31/18 09:00 91 15 141/93 95 01/31/18 08:00 98.7 F 103 18 149/100 99 01/31/18 07:00 90 16 152/103 98 01/31/18 06:00 92 16 148/99 96 Intake and Output 01/30/18 01/31/18 01/31/18 23:59 07:59 15:59 Intake Total 100 / 100 141.5 / 141.5 100 / 100 Output Total 515 / 515 355 / 355 326 / 326 Balance -415 / -415 -213.5 / -213.5 -226 / -226 Intake: IV Fluids 100 / 100 141.5 / 141.5 100 / 100 3% Sodium Chloride 500 ML @ 15 100 / 100 41 / 41 100 / 100 mls/hr IVC .Q24H STA Rx#: [id number] Ddavp 2 Mcg In 0.9 % Sodium 100.5 / 100.5 Chloride 100 ML @ 201 mls/hr IVPB ONCE ONE Rx#:[id number] Oral 0 / 0 0 / 0 Output: Urine 0 / 0 Catheter 515 / 515 355 / 355 326 / 326 Other: Weight 56.5 kg Blood Glucose* 106 - General Appearance General appearance: chronically ill, frail EENT: ATNC, mucous membranes moist Neck: no JVD, supple Respiratory: clear Cardiology: no edema, normal S1, normal S2 Gastrointestinal: no tenderness, no guarding Integumentary: warm and dry Neurologic: no focal deficit Musculoskeletal: no deformities Psychiatric: mood/affect appropriate Results - Lab Results 02/01/18 03:20 02/01/18 03:20 Most recent lab results Calcium 8.3 mg/dL (8.6-10.3) L 01/31/18 03:10 Phosphorus 3.0 mg/dL (2.7-4.5) 01/31/18 03:10 Magnesium 1.8 mg/dL (1.6-2.6) 01/31/18 03:10 Urine Creatinine 91 mg/dL 01/30/18 21:50 Urine Sodium 71.4 mEq/L 01/30/18 21:50 Consult Discharge Plan - Plan Additional Instructions: Please f/u with nephrology within 1 weeks and your primary care physician in 2- 3 days. If symptoms return, return to the ED. Please take sodium chloride tablets, thiamine, and folic acide as directed as per pharmacy. Referrals: [facility] [Provider Group] NONE,PCP [Primary Care Provider] - Prescriptions: Folic Acid 0.4 mg PO DAILY #30 tablet Sodium Chloride 1,000 mg MC BID #60 tablet.araceli Thiamine (B-1) [Vitamin B-1] 100 mg PO DAILY #30 tablet
[2018-01-31] MEDS ORDERED: Folic Acid 1 MG in D5% in Water 50 ML IVPB ONE (18:08)
[2018-01-31] MEDS: Thiamine (B-1) 100 MG in D5% in Water 50 ML IVPB SCH (19:37)
[2018-01-31] MEDS: Pantoprazole 40 MG VIAL IVP SCH (21:45)
[2018-02-01 01:30] LABS: Hepatitis B Core IgM Nonreactive (Nonreactive); Hepatitis B Surface Antigen Nonreactive (Nonreactive); Hepatitis C Virus Antibody Nonreactive (Nonreactive)
[2018-02-01 02:13] LABS: Hepatitis A Antibody IgM Nonreactive (Nonreactive)
[2018-02-01 03:30] LABS: Basophils % 0.3 %; Hematocrit 35.9 % (37.5-50.1); Hemoglobin 12.7 g/dL (12.9-16.9); Immature Granulocytes % 0.4 % (0-4); Lymphocytes # 1.6 K/mcL (0.6-4.6); Lymphocytes % 21.1 %; Mean Corpuscular HGB Conc 35.4 g/dL (31.6-35.5); Mean Corpuscular Hemoglobin 33.2 pg (28.0-33.3); Mean Platelet Volume 8.4 fL (9.4-12.4); Monocytes # 0.8 K/mcL (0.0-1.3); Monocytes % 10.2 %; Neutrophils # 5.1 K/mcL (1.6-8.9); Platelet Count 160 K/mcL (140-400); Red Blood Count 3.82 M/mcL (4.19-5.50); Red Cell Distribution Width 13.5 % (11.5-14.5)
[2018-02-01 03:48] LABS: BUN/Creatinine Ratio 17 (6-26); Blood Urea Nitrogen 8 mg/dL (6-20); Calcium 8.7 mg/dL (8.6-10.3); Carbon Dioxide 25 mEq/L (23-29); Chloride 93 mEq/L (98-107); Glucose 105 mg/dL (70-105); Osmolality,Calculated 257 (280-300); Potassium 3.2 mEq/L (3.5-5.1); Sodium 124 mEq/L (136-145); eGFR For African Americans > 60 (> 60); eGFR For Non-African Americans > 60 (> 60)
[2018-02-01 04:48] LABS: Lipase 26 Units/L (11-82)
[2018-02-01] MEDS: *HR* Heparin 5,000 UNIT/ML VIAL SQ SCH (05:16)
[2018-02-01] MEDS: Pantoprazole 40 MG VIAL IVP SCH (08:59)
[2018-02-01] MEDS: Nicotine 14 MG PATCH.TD24 TD SCH (08:59)
[2018-02-01] MEDS: Thiamine (B-1) 100 MG in D5% in Water 50 ML IVPB SCH (09:00)
--- NOTE | 2018-02-01 09:33 | Pulmonology Progress Note ---
Date of Encounter: 02/01/18 Subjective Principal diagnosis: hyponatremia, EtOH abuse Objective PUL Vital signs: Last Vital Signs Temp 98.5 F 02/01/18 08:27 Pulse 102 02/01/18 07:00 Resp 16 02/01/18 07:00 BP 128/87 02/01/18 07:00 Pulse Ox 96 02/01/18 07:00 Results - Laboratory Findings CBC and BMP: 02/01/18 03:20 02/01/18 03:20 PT/INR, D-dimer PT 11.9 Seconds (9.4-12.1) 01/31/18 03:51 Abnormal lab findings: Abnormal lab results RBC 3.82 M/mcL (4.19-5.50) L 02/01/18 03:20 Hgb 12.7 g/dL (12.9-16.9) L 02/01/18 03:20 Hct 35.9 % (37.5-50.1) L 02/01/18 03:20 MPV 8.4 fL (9.4-12.4) L 02/01/18 03:20 Sodium 124 mEq/L (136-145) L 02/01/18 03:20 Potassium 3.2 mEq/L (3.5-5.1) L 02/01/18 03:20 Chloride 93 mEq/L (98-107) L 02/01/18 03:20 Creatinine 0.48 mg/dL (0.70-1.30) L 02/01/18 03:20 POC Glucose 116 mg/dL (68-89) H 02/01/18 00:20 Serum Osmolality 243 mOsm/kg (280-300) L 01/31/18 00:25 Calculated Osmolality 257 (280-300) L 02/01/18 03:20 Total Bilirubin 1.6 mg/dL (0.3-1.0) H 01/30/18 21:50 AST 41 Units/L (13-39) H 01/30/18 21:50 - Clinical Findings Intake & Output: Intake & Output 01/31/18 02/01/18 02/01/18 23:59 07:59 15:59 Intake Total 151.2 / 151.2 50 / 50 Output Total 215 / 215 325 / 325 Balance -63.8 / -63.8 -275 / -275 Weight 62.7 kg 60.4 kg - VTE Documentation of Mechanical Device: Graduated compression elastic hosiery Consult Discharge Plan - Plan Referrals: NONE,PCP [Primary Care Provider] -
--- NOTE | 2018-02-01 09:33 | Nephrology Progress Note ---
<Dante Lobato - Last Filed: 02/01/18 15:46> Date of Encounter: 02/01/18 Time of Encounter: 09:31 - Assessment and Plan (1) Hyponatremia Status: Acute hypotonic euvolemic/hypovolemic hyponatremia most likely due to beer potomania. Patient drinks conservatively 6-8 beers a day with very low calorie intake from food. Patient was hospitalized for hyponatremia 1 month ago. On admission Sodium was 115. After receiving 3% hypertonic saline, Na is 124 today. 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 Patient is clinically asymptomatic at this time, and patient might be back to baseline/resolved. Does not require TOOL TROUBLE SHOOTER at this time. - stop desmopressin - educated patient on EtOH cessation, and increase in caloric intake from food. - Strict I/O - continue to closely monitor electrolytes - continue EtOH withdrawal protocol (2) Alcoholism /alcohol abuse Status: Chronic see above (3) Protein-calorie malnutrition Status: Chronic see above Qualifiers: Protein-calorie malnutrition severity: severe Qualified Code(s): E43 - Unspecified severe protein-calorie malnutrition Subjective Principal diagnosis: hyponatremia, EtOH abuse Interval history: Mr Dudley is a 52 yo M with a long hx of EtOH abuse, and previous hospitalizations for hyponatremia presented with 3 day hx of n/v/d. Nephrology is consulted for hyponatremia. Patient was having difficulty drinking in the morning of 12/3117 and decided he needed to come to the ED. Per chart review, patient was hospitalized 1 month ago for hyponatremia, EtOH induced seizures. When patient arrived on this admission his Na was found to be 115. As noted by admitting team, patient was confused and ultimately developed seizures. Patient was given ativan. For treatment of hyponatremia patient was started on 3% NaCl and given desmopressin. Today patient was seen and examined. He reported feeling much better, and states that "I have no interest in quiting drinking. I enjoy it too much. This is all from me not eating enough salt." Patient the reports eating eggs and rivas every morning, and fast food at some other point during the day. Patient denies feeling confused, nausea, vomiting, diarrhea, fever, or chills. Objective - Vital Signs Vital signs: Vital Signs Temp Pulse Resp BP Pulse Ox 02/01/18 08:27 98.5 F 02/01/18 07:00 102 16 128/87 96 02/01/18 06:00 90 16 117/90 94 02/01/18 05:10 95 20 124/86 96 02/01/18 05:03 98.4 F 02/01/18 04:00 94 18 137/92 94 02/01/18 03:00 91 16 112/91 96 02/01/18 02:32 94 02/01/18 02:00 91 16 128/87 94 02/01/18 01:00 86 14 137/99 96 02/01/18 00:48 98.7 F 01/31/18 23:57 93 16 149/107 95 01/31/18 23:00 93 18 128/100 95 01/31/18 22:00 94 20 146/86 93 01/31/18 21:00 97 18 143/94 95 01/31/18 20:00 98 16 142/96 94 01/31/18 19:06 109 01/31/18 18:55 98.3 F 113 16 128/97 96 01/31/18 18:00 114 16 132/98 96 01/31/18 17:00 115 16 124/89 95 01/31/18 16:17 105 01/31/18 16:00 111 16 138/117 95 01/31/18 15:30 99.1 F 01/31/18 15:00 107 16 132/85 94 01/31/18 14:00 104 15 122/79 95 01/31/18 13:00 111 16 194/85 93 01/31/18 12:00 98.5 F 90 16 153/97 99 01/31/18 11:00 87 16 144/99 98 01/31/18 10:00 87 16 140/96 98 Intake and Output 01/31/18 02/01/18 02/01/18 23:59 07:59 15:59 Intake Total 151.2 / 151.2 50 / 50 Output Total 215 / 215 325 / 325 Balance -63.8 / -63.8 -275 / -275 Intake: IV Fluids 101.2 / 101.2 Folvite 1 MG In Dextrose 5% 50 50.2 / 50.2 ML @ 50 mls/hr IVPB ONCE ONE Rx #:[id number] Vitamin B-1 100 MG In Dextrose 51 / 51 5% 50 ML @ 50 mls/hr IVPB DAILY [facility] Rx#:[id number] Oral 50 / 50 50 / 50 Output: Catheter 215 / 215 325 / 325 Other: Weight 62.7 kg 60.4 kg Blood Glucose* 116 Patient Weight 02/01/18 23:59 Weight 60.4 kg - General Appearance General appearance: Present: appears started age Respiratory: Present: clear Cardiology: Present: no edema, regular rate, regular rhythm Gastrointestinal: Present: normoactive bowel sounds, no tenderness, no guarding Integumentary: Present: warm and dry Neurologic: Present: alert and oriented x3 Psychiatric: Present: mood/affect appropriate, cooperative - Lab 02/01/18 03:20 02/01/18 03:20 Most recent lab results Calcium 8.7 mg/dL (8.6-10.3) 02/01/18 03:20 Phosphorus 3.0 mg/dL (2.7-4.5) 01/31/18 03:10 Magnesium 1.8 mg/dL (1.6-2.6) 01/31/18 03:10 Urine Creatinine 91 mg/dL 01/30/18 21:50 Urine Sodium 71.4 mEq/L 01/30/18 21:50 - VTE Documentation of Mechanical Device: Graduated compression elastic hosiery Consult Discharge Plan - Plan Additional Instructions: Please f/u with nephrology within 1 weeks and your primary care physician in 2- 3 days. If symptoms return, return to the ED. Please take sodium chloride tablets, thiamine, and folic acide as directed as per pharmacy. Referrals: [facility] [Provider Group] NONE,PCP [Primary Care Provider] - Prescriptions: Folic Acid 0.4 mg PO DAILY #30 tablet Sodium Chloride 1,000 mg MC BID #60 tablet.araceli Thiamine (B-1) [Vitamin B-1] 100 mg PO DAILY #30 tablet <Elayne Azul - Last Filed: 03/02/18 19:32> Date of Encounter: 02/01/18 - Assessment and Plan (1) Hyponatremia Status: Acute (2) Alcoholism /alcohol abuse Status: Chronic (3) Generalized seizure Status: Resolved (4) Protein-calorie malnutrition Status: Chronic Qualifiers: Protein-calorie malnutrition severity: severe Qualified Code(s): E43 - Unspecified severe protein-calorie malnutrition Objective - Lab 02/01/18 03:20 02/01/18 03:20 Most recent lab results Calcium 8.7 mg/dL (8.6-10.3) 02/01/18 03:20 Phosphorus 3.0 mg/dL (2.7-4.5) 01/31/18 03:10 Magnesium 1.8 mg/dL (1.6-2.6) 02/01/18 03:20 Urine Creatinine 91 mg/dL 01/30/18 21:50 Urine Sodium 71.4 mEq/L 01/30/18 21:50 - Attending Attestation I examined this patient and my medical decision-making was reviewed with the Resident Physician. I agree with the documented findings, disposition and treatment plan as described except to the extent set forth below. Pt seen and examined back at baseline, feels good. Sodium now 124 after hypertonic saline with desmopression discontinued. Exam unremarkable. Etiology of hyponatremia likely beer potomania but pt not willing to stop. Continue increased sodium in diet
[2018-02-01 11:05] VITALS: BP 132/89
[2018-02-01 14:29] LABS: Magnesium 1.8 mg/dL (1.6-2.6)
--- NOTE | 2018-02-01 15:33 | Discharge Summary ---
<Pauline Cedeno - Last Filed: 02/01/18 15:29> - NOTES TO OUTPATIENT PROVIDER Notes to Outpatient Provider: Please continue to monitor sodium level. Will need f/u with the senior account representative in 1 week. Date of Encounter: 02/01/18 Time of Encounter: 08:30 - Discharge Diagnosis (1) DVT prophylaxis Priority: Secondary Status: Acute (2) Hyponatremia Priority: Primary Status: Acute (3) Seizures Priority: Secondary Status: Acute (4) Alcoholism /alcohol abuse Priority: Secondary Status: Chronic - Discharge Medications Prescriptions: Folic Acid 0.4 mg PO DAILY #30 tablet Sodium Chloride 1,000 mg MC BID #60 tablet.araceli Thiamine (B-1) [Vitamin B-1] 100 mg PO DAILY #30 tablet Home Medications: Folic Acid 0.4 mg PO DAILY #30 tablet 02/01/18 [Rx] Sodium Chloride 1,000 mg MC BID #60 tablet.araceli 02/01/18 [Rx] Thiamine (B-1) [Vitamin B-1] 100 mg PO DAILY #30 tablet 02/01/18 [Rx] Allergies/Adverse Reactions: 3 Allergy/AdvReac Type Severity Reaction Status Date / Time No Known Allergies Allergy Verified 12/18/17 15:47 Labs on day of discharge: Labs from last 24 hours 02/01/18 02/01/18 02/01/18 03:20 03:20 01:30 WBC 7.4 RBC 3.82 L Hgb 12.7 L Hct 35.9 L MCV 94.0 MCH 33.2 MCHC 35.4 RDW 13.5 Plt Count 160 MPV 8.4 L Immature Gran % 0.4 Seg Neutrophils % 68.0 Lymphocytes % 21.1 Monocytes % 10.2 Eosinophils % 0.0 Basophils % 0.3 Neutrophils # 5.1 Lymphocytes # 1.6 Monocytes # 0.8 Eosinophils # 0.0 Basophils # 0.0 Sodium 124 L 123 L Potassium 3.2 L Chloride 93 L Carbon Dioxide 25 BUN 8 Creatinine 0.48 L Est GFR ( Amer) > 60 Est GFR (Non-Af Amer) > 60 BUN/Creatinine Ratio 17 Glucose 105 POC Glucose Calculated Osmolality 257 L Calcium 8.7 Magnesium 1.8 Lipase 26 Hepatitis A IgM Ab Hep Bs Antigen Hep B Core IgM Ab Hepatitis C Ab Screen 02/01/18 01/31/1801/31/18 00:20 21:27 18:10 WBC RBC Hgb Hct MCV MCH MCHC RDW Plt Count MPV Immature Gran % Seg Neutrophils % Lymphocytes % Monocytes % Eosinophils % Basophils % Neutrophils # Lymphocytes # Monocytes # Eosinophils # Basophils # Sodium 121 L 121 L Potassium Chloride Carbon Dioxide BUN Creatinine Est GFR ( Amer) Est GFR (Non-Af Amer) BUN/Creatinine Ratio Glucose POC Glucose 116 H Calculated Osmolality Calcium Magnesium Lipase Hepatitis A IgM Ab Hep Bs Antigen Hep B Core IgM Ab Hepatitis C Ab Screen 01/31/18 05:33 WBC RBC Hgb Hct MCV MCH MCHC RDW Plt Count MPV Immature Gran % Seg Neutrophils % Lymphocytes % Monocytes % Eosinophils % Basophils % Neutrophils # Lymphocytes # Monocytes # Eosinophils # Basophils # Sodium Potassium Chloride Carbon Dioxide BUN Creatinine Est GFR ( Amer) Est GFR (Non-Af Amer) BUN/Creatinine Ratio Glucose POC Glucose Calculated Osmolality Calcium Magnesium Lipase Hepatitis A IgM Ab Nonreactive Hep Bs Antigen Nonreactive Hep B Core IgM Ab Nonreactive Hepatitis C Ab Screen Nonreactive - Impressions ITS Impressions Chest X-Ray 01/30/18 21:22 IMPRESSION: No radiographic evidence of acute cardiopulmonary disease. Interval placement right subclavian CVC, tip at the mid superior vena cava level. No pneumothorax. D/ / Travis Hua / Travis Hua Interpreting Provider: Travis Hua Head CT 01/31/18 08:20 IMPRESSION: No acute intracranial abnormality. D/ / Db Angelo MD / Db Angelo MD Interpreting Provider: Db Angelo MD Date of admission: 01/30/18 20:00 Primary care physician: PCP NONE Consults: 01/31/18 07:27 Consult to Nephrology [CONS] Stat Consulting Provider: [facility] Reason for Consult: symptomatic hyponatremia 117, beer potomania Call Completed: Yes 01/31/18 07:42 Consult to Pulmonology [CONS] Stat Consulting Provider: [facility] Reason for Consult: Critical care Call Completed: Yes Discharging clinician: Lawrence Siddiqui Anticipated date of discharge: 02/01/18 - Patient Status Disposition: Left Against Medical Advice Condition: Fair Functional capacity at discharge: independent ambulation Overall status at discharge: patient is progressing back to baseline - Discharge Instructions Follow Up With: NONE,PCP [Primary Care Provider] - [facility] [Provider Group] Additional Instructions: Please f/u with nephrology within 1 weeks and your primary care physician in 2- 3 days. If symptoms return, return to the ED. Please take sodium chloride tablets, thiamine, and folic acide as directed as per pharmacy. - Diet and Activity Activity: increase activity as tolerated Diet: advance to your usual diet - Hospital Course Hospital course: Mr. Dudley is a 52 year old male with a past medical history of chronic hyponatremia, beer potomania and HTN presented to [place] ED with complaints of nausea, vomiting and diarrhea and was found to have acute worsening hyponatremia with a sodium of 115. CT head, abdomen, and pelvis negative for acute processes. While the admitting hospitalist was doing his physical exam, he witnessed patient have a seizure at which time ativan 2mg was given and he was moved from the step down unit to the ICU. R subclavian CVC placed. Patient was initiated on hypertonic 3% saline and patient improved clinically and sodium increased to 124. Patient stated that he was asymtomatic and was able to keep food down without N/V. Patient was deemed capable of making medical decision. Patient decided he wanted to leave AMA. Patient was informed that we did not medically advise that at this time as his sodium level had not been stabilized. The benefits and possible adverse outcomes of leaving the hospital before medically advised including seizure, coma, and were discussed with the patient. Patient signed AMA papers and was discharged with prescriptions for sodium chloride tablets, folic acid, and thiamine. - Time Spent with Patient Total time spent providing and/or coordinating discharge services: Physical Examination Constitutional: Alert, in no acute distress Head: Normocephalic, atraumatic Heart: Normal, regular rate and rhythm, no murmurs Lungs: Clear to auscultation, no wheezes, rales, or rhonchi Abdomen: Soft, nondistended, nontender, no guarding or rigidity. Extremities: No edema, No clubbing, capillary refill <2sec. Skin: Skin warm and dry, no lesions, no rashes, no jaundice Neurologic: Cranial nerves II through XII grossly intact, strength 5/5 in all extremities Psych: Cooperative with exam, good eye contact, cognitive function intact, speech clear, thought process logical, and goal directed - VTE Documentation of Mechanical Device: Graduated compression elastic hosiery <Lawrence Siddiqui - Last Filed: 02/01/18 19:00> Date of Encounter: 02/01/18 Labs on day of discharge: Labs from last 24 hours 02/01/18 02/01/18 02/01/18 03:20 03:20 01:30 WBC 7.4 RBC 3.82 L Hgb 12.7 L Hct 35.9 L MCV 94.0 MCH 33.2 MCHC 35.4 RDW 13.5 Plt Count 160 MPV 8.4 L Immature Gran % 0.4 Seg Neutrophils % 68.0 Lymphocytes % 21.1 Monocytes % 10.2 Eosinophils % 0.0 Basophils % 0.3 Neutrophils # 5.1 Lymphocytes # 1.6 Monocytes # 0.8 Eosinophils # 0.0 Basophils # 0.0 Sodium 124 L 123 L Potassium 3.2 L Chloride 93 L Carbon Dioxide 25 BUN 8 Creatinine 0.48 L Est GFR ( Amer) > 60 Est GFR (Non-Af Amer) > 60 BUN/Creatinine Ratio 17 Glucose 105 POC Glucose Calculated Osmolality 257 L Calcium 8.7 Magnesium 1.8 Lipase 26 Hepatitis A IgM Ab Hep Bs Antigen Hep B Core IgM Ab Hepatitis C Ab Screen 02/01/18 01/31/18 01/31/18 00:20 21:27 05:33 WBC RBC Hgb Hct MCV MCH MCHC RDW Plt Count MPV Immature Gran % Seg Neutrophils % Lymphocytes % Monocytes % Eosinophils % Basophils % Neutrophils # Lymphocytes # Monocytes # Eosinophils # Basophils # Sodium 121 L Potassium Chloride Carbon Dioxide BUN Creatinine Est GFR ( Amer) Est GFR (Non-Af Amer) BUN/Creatinine Ratio Glucose POC Glucose 116 H Calculated Osmolality Calcium Magnesium Lipase Hepatitis A IgM Ab Nonreactive Hep Bs Antigen Nonreactive Hep B Core IgM Ab Nonreactive Hepatitis C Ab Screen Nonreactive - Impressions ITS Impressions Chest X-Ray 01/30/18 21:22 IMPRESSION: No radiographic evidence of acute cardiopulmonary disease. Interval placement right subclavian CVC, tip at the mid superior vena cava level. No pneumothorax. D/ / Travis Hua / Travis Hua Interpreting Provider: Travis Hua Head CT 01/31/18 08:20 IMPRESSION: No acute intracranial abnormality. D/ / Db Angelo MD / Db Angelo MD Interpreting Provider: Db Angelo MD Date of admission: 01/30/18 20:00 Primary care physician: PCP NONE Consults: 01/31/18 07:27 Consult to Nephrology [CONS] Stat Consulting Provider: [facility] Reason for Consult: symptomatic hyponatremia 117, beer potomania Call Completed: Yes 01/31/18 07:42 Consult to Pulmonology [CONS] Stat Consulting Provider: [facility] Reason for Consult: Critical care Call Completed: Yes - Hospital Course Hospital course: Mr. Dudley is a 52 year old male - Time Spent with Patient Total time spent providing and/or coordinating discharge services: - Attending Attestation I examined this patient and my medical decision-making was reviewed with the Resident Physician. I agree with the documented findings, disposition and treatment plan as described except to the extent set forth below.
== END 2018-02-01 11:10 | disposition left against medical advice (07) | DRG 640 ==
LOC: 2NNU 20:00 → SUATTDRO 20:00 → ICNU 20:53
PROVIDERS: ADMIT Hospitalist; ATTEND Internal Medicine

== ENCOUNTER 2019-12-06 19:14 | Inpatient (IN) ==
[2019-12-06] MEDS ORDERED: Isovue-370 500 ML BOTTLE IVP ONE (21:49)
[2019-12-06] MEDS ORDERED: *HR* LORazepam 2 MG/ML VIAL IVP PRN ×3 (21:51)
[2019-12-06] MEDS ORDERED: Nicotine 21 MG PATCH.TD24 TD SCH (22:00)
[2019-12-06] MEDS ORDERED: Naloxone 0.4 MG/ML INJ IVP PRN (22:17)
[2019-12-06 22:28] LABS: Basophils % 0.1 %; Hematocrit 27.3 % (37.5-50.1); Hemoglobin 9.8 g/dL (12.9-16.9); Immature Granulocytes % 1.7 % (0-4); Lymphocytes # 2.8 K/mcL (0.6-4.6); Lymphocytes % 11.8 %; Mean Corpuscular HGB Conc 35.9 g/dL (31.6-35.5); Mean Corpuscular Hemoglobin 35.3 pg (28.0-33.3); Mean Corpuscular Volume 98.2 fL (83.0-100.0); Monocytes # 1.2 K/mcL (0.0-1.3); Monocytes % 5.2 %; Neutrophils # 19.2 K/mcL (1.6-8.9); Nucleated Red Blood Cells 0.1 /100 WBC (0); Platelet Count 153 K/mcL (140-400); Red Blood Count 2.78 M/mcL (4.19-5.50); Red Cell Distribution Width 14.5 % (11.5-14.5); Segmented Neutrophils % 81.2 %; White Blood Count 23.6 K/mcL (4.3-11.1)
[2019-12-06 22:39] LABS: Alanine Aminotransferase 53 Units/L (7-52); Albumin 1.6 g/dL (3.5-5.7); Albumin/Globulin Ratio 0.5 (1.1-2.2); Alkaline Phosphatase 129 Units/L (34-104); Aspartate Amino Transferase 142 Units/L (13-39); BUN/Creatinine Ratio 6 (6-26); Bilirubin,Total 0.9 mg/dL (0.3-1.0); Blood Urea Nitrogen 2 mg/dL (6-20); Carbon Dioxide 21 mEq/L (23-29); Chloride 98 mEq/L (98-107); Globulin 3.1 g/dL (2.4-3.5); Glucose 94 mg/dL (70-105); Osmolality,Calculated 254 (280-300); Potassium 3.5 mEq/L (3.5-5.1); Sodium 124 mEq/L (136-145); Total Protein 4.7 g/dL (6.4-8.9); eGFR For African Americans > 60 (> 60); eGFR For Non-African Americans > 60 (> 60)
[2019-12-06 22:44] LABS: Bilirubin,Urine Negative (Negative); Blood,Urine Negative (Negative); Color,Urine Yellow (Yellow); Glucose,Urine (UA) Normal (Normal); Ketones,Urine Negative (Negative); Leukocyte Esterase,Urine Large (Negative); Nitrite,Urine Negative (Negative); PH,Urine 6.5 pH Units (5.0-8.0); Protein,Urine Negative (Neg-Trace); Specific Gravity,Urine 1.006 (1.010-1.025); Urobilinogen,Urine Normal (Normal)
[2019-12-06 22:47] LABS: Bacteria,Urine Many per hpf (None-Few); RBC,Urine 0-3 per hpf (0-3); Squamous Epithelial Cell,Urine Few per lpf (None-Few); WBC,Urine 50-100 per hpf (0-3)
[2019-12-06 22:56] LABS: Clarity,Urine Hazy (Clear)
[2019-12-06] MEDS: Thiamine (B-1) 100 MG TABLET PO SCH (23:03)
[2019-12-06] MEDS: Folic Acid 1 MG TABLET PO SCH (23:03)
[2019-12-06] MEDS: Vitamin B Complex/Vit C/Vit E 1 EACH TABLET PO SCH (23:03)
[2019-12-06] MEDS ORDERED: Thiamine (B-1) 100 MG, Folic Acid 1 MG, MVI, adult with vitamin K 10 ML in 0.9 % Sodi... IVPB SCH (23:10)
[2019-12-06] MEDS ORDERED: cefTRIAXone 2,000 MG in 0.9 % Sodium Chloride Mini Bag 100 ML IVPB SCH (23:45)
[2019-12-07] MEDS ORDERED: D5% in 0.45% NACL 1,000 ML IVC SCH ×2 (03:30→06:48)
[2019-12-07 04:37] LABS: Hematocrit 21.8 % (37.5-50.1); Mean Corpuscular HGB Conc 35.8 g/dL (31.6-35.5); Mean Corpuscular Hemoglobin 34.7 pg (28.0-33.3); Mean Corpuscular Volume 96.9 fL (83.0-100.0); Mean Platelet Volume 9.1 fL (9.4-12.4); Platelet Count 111 K/mcL (140-400); Red Blood Count 2.25 M/mcL (4.19-5.50); Red Cell Distribution Width 14.5 % (11.5-14.5); White Blood Count 13.7 K/mcL (4.3-11.1)
[2019-12-07 04:38] LABS: Hemoglobin 7.8 g/dL (12.9-16.9)
[2019-12-07 05:22] LABS: Folate > 22.3 ng/mL (3.0-16.0); Vitamin B12 > 1500 pg/mL (250-1100)
[2019-12-07 05:34] LABS: BUN/Creatinine Ratio 11 (6-26); Blood Urea Nitrogen 3 mg/dL (6-20); Calcium 6.2 mg/dL (8.6-10.3); Carbon Dioxide 21 mEq/L (23-29); Chloride 102 mEq/L (98-107); Glucose 73 mg/dL (70-105); Iron 47 mcg/dL (65-175); Magnesium 1.4 mg/dL (1.6-2.6); Osmolality,Calculated 261 (280-300); Phosphorous 2.4 mg/dL (2.7-4.5); Potassium 3.1 mEq/L (3.5-5.1); Sodium 128 mEq/L (136-145); Transferrin < 75 mg/dL (203-362); eGFR For African Americans > 60 (> 60); eGFR For Non-African Americans > 60 (> 60)
[2019-12-07] MEDS ORDERED: *HR* Heparin 5,000 UNIT/ML VIAL SQ SCH (06:00)
[2019-12-07] MEDS ORDERED: Potassium Chloride 40 MEQ, Lidocaine 1% 2 ML in 0.9 % Sodium Chloride 500 ML IVPB ONE (06:30)
[2019-12-07] MEDS ORDERED: Calcium Chloride 1,000 MG in 0.9 % Sodium Chloride 100 ML IVPB ONE ×2 (06:32→13:55)
[2019-12-07] MEDS ORDERED: Calcium Gluconate 1gm/50mL 1 GM/50 ML BAG IVPB ONE ×3 (07:00→13:55)
[2019-12-07] MEDS: Vitamin B Complex/Vit C/Vit E 1 EACH TABLET PO SCH (07:49)
[2019-12-07] MEDS: Folic Acid 1 MG TABLET PO SCH (07:49)
[2019-12-07] MEDS: Thiamine (B-1) 100 MG TABLET PO SCH (08:12)
[2019-12-07] MEDS ORDERED: *HR* Midazolam HCl 2 MG/2 ML VIAL IVP ONE (08:35)
[2019-12-07 10:17] LABS: Adenovirus Not Detected (Not Detect); Bordetella Pertussis Not Detected (Not Detect); Chlamydophila pneumoniae Not Detected (Not Detect); Coronavirus 229E Not Detected (Not Detect); Coronavirus HKU1 Not Detected (Not Detect); Coronavirus NL63 Not Detected (Not Detect); Coronavirus OC43 Not Detected (Not Detect); Human Metapneumovirus Not Detected (Not Detect); Human Rhinovirus/Enterovirus Not Detected (Not Detect); Influenza A Subtype 2009 H1 Not Detected (Not Detect); Influenza B Not Detected (Not Detect); Mycoplasma pneumoniae Not Detected (Not Detect); Parainfluenza Virus 1 Not Detected (Not Detect); Parainfluenza Virus 2 Not Detected (Not Detect); Parainfluenza Virus 3 Not Detected (Not Detect); Parainfluenza Virus 4 Not Detected (Not Detect); Respiratory Syncytial Virus Not Detected (Not Detect)
[2019-12-07 12:04] LABS: Hematocrit 24.3 % (37.5-50.1); Hemoglobin 8.7 g/dL (12.9-16.9); Mean Corpuscular HGB Conc 35.8 g/dL (31.6-35.5); Mean Corpuscular Volume 100.4 fL (83.0-100.0); Mean Platelet Volume 9.2 fL (9.4-12.4); Platelet Count 113 K/mcL (140-400); Red Blood Count 2.42 M/mcL (4.19-5.50); White Blood Count 13.7 K/mcL (4.3-11.1)
[2019-12-07 12:26] LABS: BUN/Creatinine Ratio 10 (6-26); Blood Urea Nitrogen 4 mg/dL (6-20); Calcium 6.7 mg/dL (8.6-10.3); Carbon Dioxide 19 mEq/L (23-29); Chloride 102 mEq/L (98-107); Glucose 208 mg/dL (70-105); Magnesium 1.8 mg/dL (1.6-2.6); Osmolality,Calculated 263 (280-300); Potassium 3.8 mEq/L (3.5-5.1); Sodium 125 mEq/L (136-145); eGFR For African Americans > 60 (> 60); eGFR For Non-African Americans > 60 (> 60)
[2019-12-07] MEDS ORDERED: Beer can PO SCH (12:35)
[2019-12-07 12:48] LABS: Folate 17.3 ng/mL (3.0-16.0)
[2019-12-07 12:52] LABS: Vitamin B12 > 1500 pg/mL (250-1100)
[2019-12-07] MEDS ORDERED: *HR* LORazepam 2 MG/ML VIAL IVP PRN ×3 (13:55)
[2019-12-07] MEDS ORDERED: Naloxone 0.4 MG/ML INJ IVP PRN (13:55)
[2019-12-07] MEDS: D5% in 0.45% NACL 1,000 ML IVC SCH ×2 (14:22→22:38)
[2019-12-07] MEDS: *HR* Heparin 5,000 UNIT/ML VIAL SQ SCH ×2 (14:29→21:22)
[2019-12-07 18:23] LABS: Hemoglobin 8.4 g/dL (12.9-16.9)
[2019-12-07] MEDS: Beer can PO SCH (19:14)
[2019-12-07] MEDS: Thiamine (B-1) 100 MG, Folic Acid 1 MG, MVI, adult with vitamin K 10 ML in 0.9 % Sodi... IVPB SCH (19:14)
[2019-12-07] MEDS: Nicotine 21 MG PATCH.TD24 TD SCH (21:35)
[2019-12-07] MEDS ORDERED: Thiamine (B-1) 100 MG, Folic Acid 1 MG, MVI, adult with vitamin K 10 ML in 0.9 % Sodi... IVPB SCH (21:51)
[2019-12-07] MEDS: cefTRIAXone 2,000 MG in 0.9 % Sodium Chloride Mini Bag 100 ML IVPB SCH (23:54)
[2019-12-08] MEDS: D5% in 0.45% NACL 1,000 ML IVC SCH (06:22)
[2019-12-08] MEDS: *HR* Heparin 5,000 UNIT/ML VIAL SQ SCH (06:22)
[2019-12-08 06:37] LABS: Basophils % 0.1 %; Eosinophils % 0.2 %; Hematocrit 23.1 % (37.5-50.1); Hemoglobin 8.2 g/dL (12.9-16.9); Lymphocytes % 20.1 %; Mean Corpuscular HGB Conc 35.5 g/dL (31.6-35.5); Mean Corpuscular Hemoglobin 35.5 pg (28.0-33.3); Mean Platelet Volume 9.9 fL (9.4-12.4); Monocytes # 0.6 K/mcL (0.0-1.3); Neutrophils # 7.2 K/mcL (1.6-8.9); Platelet Count 103 K/mcL (140-400); Red Blood Count 2.31 M/mcL (4.19-5.50); Red Cell Distribution Width 15.2 % (11.5-14.5); Segmented Neutrophils % 72.6 %
[2019-12-08] MEDS ORDERED: Calcium Chloride 1,000 MG in 0.9 % Sodium Chloride 100 ML IVPB ONE (07:54)
[2019-12-08] MEDS ORDERED: 0.9 % Sodium Chloride 1,000 ML IVC SCH (08:00)
[2019-12-08 08:18] LABS: BUN/Creatinine Ratio 13 (6-26); Blood Urea Nitrogen 3 mg/dL (6-20); Calcium 6.7 mg/dL (8.6-10.3); Carbon Dioxide 21 mEq/L (23-29); Chloride 101 mEq/L (98-107); Glucose 157 mg/dL (70-105); Magnesium 1.5 mg/dL (1.6-2.6); Osmolality,Calculated 260 (280-300); Potassium 3.3 mEq/L (3.5-5.1); Sodium 125 mEq/L (136-145); eGFR For African Americans > 60 (> 60); eGFR For Non-African Americans > 60 (> 60)
[2019-12-08] MEDS: Folic Acid 1 MG TABLET PO SCH (09:23)
[2019-12-08] MEDS: Vitamin B Complex/Vit C/Vit E 1 EACH TABLET PO SCH (09:24)
[2019-12-08] MEDS: Thiamine (B-1) 100 MG TABLET PO SCH (09:24)
[2019-12-08] MEDS: Beer can PO SCH ×2 (11:51→17:12)
[2019-12-08] MEDS: Bumetanide 1 MG/4 ML VIAL IVP SCH ×2 (15:29→21:11)
[2019-12-08] MEDS ORDERED: SODIUM CHLORIDE/NAHCO3/KCL/PEG 4,000 ML SOLN.RECON PO ONE (17:00)
[2019-12-08 17:01] LABS: Hematocrit 31.3 % (37.5-50.1)
[2019-12-08 17:07] LABS: Hemoglobin 10.5 g/dL (12.9-16.9)
[2019-12-08] MEDS: Pantoprazole 40 MG VIAL IVP SCH (17:12)
[2019-12-08] MEDS: Thiamine (B-1) 100 MG, Folic Acid 1 MG, MVI, adult with vitamin K 10 ML in 0.9 % Sodi... IVPB SCH (17:13)
[2019-12-08] MEDS: Nicotine 21 MG PATCH.TD24 TD SCH (21:11)
[2019-12-09] MEDS: cefTRIAXone 2,000 MG in 0.9 % Sodium Chloride Mini Bag 100 ML IVPB SCH (00:18)
[2019-12-09] MEDS: Pantoprazole 40 MG VIAL IVP SCH (05:41)
[2019-12-09 06:35] LABS: Iron 64 mcg/dL (65-175); Transferrin < 75 mg/dL (203-362)
[2019-12-09] MEDS ORDERED: Propofol 500 MG/50 ML INFUS..BTL ONE (08:06)
[2019-12-09 08:13] LABS: Basophils % 0.3 %; Eosinophils % 0.6 %; Hematocrit 25.5 % (37.5-50.1); Immature Granulocytes % 0.4 % (0-4); Lymphocytes # 2.5 K/mcL (0.6-4.6); Lymphocytes % 34.4 %; Mean Corpuscular HGB Conc 33.7 g/dL (31.6-35.5); Mean Corpuscular Hemoglobin 34.7 pg (28.0-33.3); Mean Corpuscular Volume 102.8 fL (83.0-100.0); Monocytes # 0.4 K/mcL (0.0-1.3); Monocytes % 5.5 %; Neutrophils # 4.3 K/mcL (1.6-8.9); Platelet Count 123 K/mcL (140-400); Red Blood Count 2.48 M/mcL (4.19-5.50); Red Cell Distribution Width 14.9 % (11.5-14.5); Segmented Neutrophils % 58.8 %; White Blood Count 7.3 K/mcL (4.3-11.1)
[2019-12-09 08:14] LABS: Hemoglobin 8.6 g/dL (12.9-16.9)
[2019-12-09] MEDS ORDERED: Lidocaine -MPF 2% 2 ML VIAL ONE (08:18)
[2019-12-09] MEDS ORDERED: *HR* PHENYLEPHRINE 1,000 MCG/10 ML SYRINGE IVP ONE (08:31)
[2019-12-09 08:34] LABS: BUN/Creatinine Ratio 8 (6-26); Blood Urea Nitrogen 2 mg/dL (6-20); Calcium 6.9 mg/dL (8.6-10.3); Carbon Dioxide 21 mEq/L (23-29); Chloride 97 mEq/L (98-107); Glucose 72 mg/dL (70-105); Magnesium 1.2 mg/dL (1.6-2.6); Osmolality,Calculated 259 (280-300); Phosphorous 3.2 mg/dL (2.7-4.5); Potassium 3.1 mEq/L (3.5-5.1); Sodium 127 mEq/L (136-145); eGFR For African Americans > 60 (> 60); eGFR For Non-African Americans > 60 (> 60)
[2019-12-09] MEDS ORDERED: *HR* EPINEPHrine 30 MG/30 ML MDV SQ ONE (08:40)
[2019-12-09] MEDS: *HR* EPINEPHrine 1 MG/10 ML SYRINGE INTRATRACH ONE ×2 (08:40→09:22)
[2019-12-09] MEDS ORDERED: *HR* EPINEPHrine 1 MG/10 ML SYRINGE INTRATRACH ONE ×3 (08:40→09:13)
[2019-12-09] MEDS ORDERED: *HR* EPINEPHrine 1 MG/10 ML SYRINGE INTRATRACH PRN (08:51)
[2019-12-09] MEDS ORDERED: *HR* Propofol 200 MG/20 ML VIAL IVP ONE (08:53)
[2019-12-09] MEDS: Bumetanide 1 MG/4 ML VIAL IVP SCH ×3 (09:40→20:35)
[2019-12-09] MEDS: Thiamine (B-1) 100 MG TABLET PO SCH (09:40)
[2019-12-09] MEDS: Vitamin B Complex/Vit C/Vit E 1 EACH TABLET PO SCH (09:40)
[2019-12-09] MEDS: Folic Acid 1 MG TABLET PO SCH (09:40)
[2019-12-09] MEDS: Beer can PO SCH ×2 (12:15→17:18)
[2019-12-09] MEDS: cephALEXin 500 MG CAPSULE PO SCH (20:35)
[2019-12-09] MEDS: *HR* Heparin 5,000 UNIT/ML VIAL SQ SCH (20:36)
[2019-12-09] MEDS: Nicotine 21 MG PATCH.TD24 TD SCH (20:36)
[2019-12-10] MEDS: *HR* Heparin 5,000 UNIT/ML VIAL SQ SCH (06:01)
[2019-12-10 07:38] LABS: Basophils % 0.4 %; Eosinophils % 0.5 %; Hematocrit 26.5 % (37.5-50.1); Immature Granulocytes % 0.5 % (0-4); Lymphocytes # 2.9 K/mcL (0.6-4.6); Lymphocytes % 36.2 %; Mean Corpuscular Hemoglobin 34.9 pg (28.0-33.3); Mean Corpuscular Volume 102.7 fL (83.0-100.0); Mean Platelet Volume 9.5 fL (9.4-12.4); Monocytes # 0.5 K/mcL (0.0-1.3); Monocytes % 5.8 %; Neutrophils # 4.5 K/mcL (1.6-8.9); Platelet Count 138 K/mcL (140-400); Red Blood Count 2.58 M/mcL (4.19-5.50); Red Cell Distribution Width 15.3 % (11.5-14.5); Segmented Neutrophils % 56.6 %
[2019-12-10 07:44] VITALS: BP 109/76
[2019-12-10 07:48] LABS: BUN/Creatinine Ratio 8 (6-26); Blood Urea Nitrogen 2 mg/dL (6-20); Carbon Dioxide 23 mEq/L (23-29); Chloride 99 mEq/L (98-107); Glucose 90 mg/dL (70-105); Magnesium 1.4 mg/dL (1.6-2.6); Osmolality,Calculated 260 (280-300); Phosphorous 3.1 mg/dL (2.7-4.5); Potassium 3.6 mEq/L (3.5-5.1); Sodium 127 mEq/L (136-145); eGFR For African Americans > 60 (> 60); eGFR For Non-African Americans > 60 (> 60)
[2019-12-10] MEDS ORDERED: Magnesium Sulfate 2 GM/100 ML PIGGYBACK IVPB ONE (08:29)
[2019-12-10] MEDS: Folic Acid 1 MG TABLET PO SCH (08:34)
[2019-12-10] MEDS: Vitamin B Complex/Vit C/Vit E 1 EACH TABLET PO SCH (08:34)
[2019-12-10] MEDS: cephALEXin 500 MG CAPSULE PO SCH (08:34)
[2019-12-10] MEDS: Thiamine (B-1) 100 MG TABLET PO SCH (08:34)
[2019-12-10] MEDS: Bumetanide 1 MG/4 ML VIAL IVP SCH (08:35)
[2019-12-10] MEDS ORDERED: Magnesium Oxide 400 MG TABLET PO SCH (09:00)
== END 2019-12-10 11:13 | disposition home health service (06) | DRG 871 ==
LOC: ICNU → SUATTDRO 23:43 → 3ANU 12-07 13:20
PROVIDERS: ADMIT Internal Medicine; ATTEND Internal Medicine
PROC: ENDOEBX (2019-12-09 20:00)

== ENCOUNTER 2020-02-28 14:47 | Inpatient (IN) ==
[2020-02-28] MEDS ORDERED: Naloxone 0.4 MG/ML INJ IVP PRN (20:27)
[2020-02-28] MEDS ORDERED: *HR* LORazepam 2 MG/ML VIAL IVP PRN ×3 (21:45)
[2020-02-28] MEDS ORDERED: *HR* Heparin 5,000 UNIT/ML VIAL SQ SCH (22:00)
[2020-02-28] MEDS ORDERED: Melatonin 3 MG TABLET PO PRN (23:38)
[2020-02-28] MEDS: Melatonin 3 MG TABLET PO SCH (23:56)
[2020-02-29 02:30] LABS: Basophils % 0.3 %; Eosinophils % 0.2 %; Hematocrit 28.1 % (37.5-50.1); Hemoglobin 9.2 g/dL (12.9-16.9); Immature Granulocytes % 0.9 % (0-4); Lymphocytes # 2.7 K/mcL (0.6-4.6); Lymphocytes % 24.2 %; Mean Corpuscular HGB Conc 32.7 g/dL (31.6-35.5); Mean Corpuscular Hemoglobin 32.6 pg (28.0-33.3); Mean Corpuscular Volume 99.6 fL (83.0-100.0); Mean Platelet Volume 8.8 fL (9.4-12.4); Monocytes # 0.6 K/mcL (0.0-1.3); Monocytes % 5.8 %; Neutrophils # 7.5 K/mcL (1.6-8.9); Platelet Count 260 K/mcL (140-400); Red Blood Count 2.82 M/mcL (4.19-5.50); Red Cell Distribution Width 17.8 % (11.5-14.5); Segmented Neutrophils % 68.6 %
[2020-02-29 02:44] LABS: INR 1.6; Prothrombin Time 18.2 Seconds (9.4-12.1)
[2020-02-29 02:50] LABS: BUN/Creatinine Ratio 15 (6-26); Blood Urea Nitrogen 4 mg/dL (6-20); Calcium 6.7 mg/dL (8.6-10.3); Carbon Dioxide 20 mEq/L (23-29); Chloride 100 mEq/L (98-107); Glucose 126 mg/dL (70-105); Magnesium 1.8 mg/dL (1.6-2.6); Osmolality,Calculated 258 (280-300); Potassium 3.4 mEq/L (3.5-5.1); Sodium 125 mEq/L (136-145); eGFR For African Americans > 60 (> 60); eGFR For Non-African Americans > 60 (> 60)
[2020-02-29 03:38] LABS: C-Reactive Protein 24 mg/L (Less than 10); Gamma Glutamyl Transpeptidase 61 Units/L (7-64)
[2020-02-29 03:53] LABS: Thyroid Stimulating Hormone 3.448 mcIU/mL (0.340-5.600)
[2020-02-29 07:50] LABS: Albumin < 1.5 g/dL (3.5-5.7)
[2020-02-29] MEDS: Folic Acid 1 MG TABLET PO SCH (08:45)
[2020-02-29] MEDS: Vitamin B Complex/Vit C/Vit E 1 EACH TABLET PO SCH (08:46)
[2020-02-29] MEDS: Thiamine (B-1) 100 MG TABLET PO SCH (08:46)
[2020-02-29] MEDS: Nicotine 21 MG PATCH.TD24 TD SCH (08:47)
[2020-02-29] MEDS: cefTRIAXone 1,000 MG in Water for inj. (sterile) 10 ML IVP SCH (08:52)
[2020-02-29] MEDS ORDERED: Furosemide 40 MG TABLET PO SCH (09:45)
[2020-02-29] MEDS: MetroNIDAZOLE 500 MG/100 ML 500 MG/100 ML BAG IVPB SCH ×3 (10:53→22:57)
[2020-02-29 10:54] LABS: RBC,Peritoneal Fluid < 0.002 M/mcL
[2020-02-29 11:01] LABS: Amylase,Peritoneal Fluid 16 Units/L (No Ref Range); Glucose,Peritoneal Fluid 107 mg/dL (No Ref Range); LDH,Peritoneal Fluid 44 Units/L (No Ref Range); Total Protein,Peritoneal Fluid < 3.0 g/dL
[2020-02-29] MEDS ORDERED: Potassium Chloride Elixir 20 MEQ/15 ML UDC PO ONE (11:33)
[2020-02-29 11:44] LABS: Appearance of Peritoneal Fl CLEAR (Clear)
[2020-02-29] MEDS: Albumin 25% 25gram/100mL 25 GM/100 ML IV.SOLN IVPB SCH ×2 (12:15→20:51)
[2020-02-29 19:33] LABS: Bilirubin,Urine Negative (Negative); Blood,Urine Small (Negative); Clarity,Urine Cloudy (Clear); Color,Urine Yellow (Yellow); Glucose,Urine (UA) Normal (Normal); Ketones,Urine Negative (Negative); Leukocyte Esterase,Urine Large (Negative); Nitrite,Urine Negative (Negative); Protein,Urine Negative (Neg-Trace); Specific Gravity,Urine 1.018 (1.010-1.025); Urobilinogen,Urine Normal (Normal)
[2020-02-29 19:37] LABS: RBC,Urine 0-3 per hpf (0-3); Squamous Epithelial Cell,Urine Many per lpf (None-Few); WBC,Urine TNTC per hpf (0-3)
[2020-02-29 19:50] LABS: Bacteria,Urine Few per hpf (None-Few); Hyaline Casts,Urine Few per lpf (None-Few); Mucus,Urine Few per lpf (Few)
[2020-02-29] MEDS: Melatonin 3 MG TABLET PO SCH (20:51)
[2020-03-01 03:06] LABS: INR 2.1; Prothrombin Time 23.5 Seconds (9.4-12.1)
[2020-03-01 03:07] LABS: Basophils % 0.2 %; Eosinophils % 0.1 %; Hematocrit 21.3 % (37.5-50.1); Hemoglobin 7.2 g/dL (12.9-16.9); Immature Granulocytes % 0.9 % (0-4); Lymphocytes # 2.7 K/mcL (0.6-4.6); Lymphocytes % 29.7 %; Mean Corpuscular HGB Conc 33.8 g/dL (31.6-35.5); Mean Corpuscular Hemoglobin 33.5 pg (28.0-33.3); Mean Corpuscular Volume 99.1 fL (83.0-100.0); Mean Platelet Volume 8.7 fL (9.4-12.4); Monocytes # 0.6 K/mcL (0.0-1.3); Monocytes % 6.5 %; Neutrophils # 5.6 K/mcL (1.6-8.9); Platelet Count 223 K/mcL (140-400); Red Blood Count 2.15 M/mcL (4.19-5.50); Red Cell Distribution Width 17.9 % (11.5-14.5); Segmented Neutrophils % 62.6 %
[2020-03-01 03:27] LABS: Alanine Aminotransferase 16 Units/L (7-52); Albumin/Globulin Ratio 0.9 (1.1-2.2); Alkaline Phosphatase 92 Units/L (34-104); Aspartate Amino Transferase 15 Units/L (13-39); BUN/Creatinine Ratio 18 (6-26); Bilirubin,Total 0.7 mg/dL (0.3-1.0); Blood Urea Nitrogen 4 mg/dL (6-20); Calcium 7.1 mg/dL (8.6-10.3); Carbon Dioxide 19 mEq/L (23-29); Chloride 102 mEq/L (98-107); Globulin 2.2 g/dL (2.4-3.5); Glucose 98 mg/dL (70-105); Osmolality,Calculated 261 (280-300); Potassium 3.6 mEq/L (3.5-5.1); Sodium 127 mEq/L (136-145); Total Protein 4.2 g/dL (6.4-8.9); eGFR For African Americans > 60 (> 60); eGFR For Non-African Americans > 60 (> 60)
[2020-03-01] MEDS: Albumin 25% 25gram/100mL 25 GM/100 ML IV.SOLN IVPB SCH ×3 (04:46→17:24)
[2020-03-01] MEDS: Vitamin B Complex/Vit C/Vit E 1 EACH TABLET PO SCH (07:47)
[2020-03-01] MEDS: Cholecalciferol (D-3) 1,000 UNIT (25MCG) TABLET PO SCH (07:48)
[2020-03-01] MEDS: Thiamine (B-1) 100 MG TABLET PO SCH (07:48)
[2020-03-01] MEDS: Folic Acid 1 MG TABLET PO SCH (07:48)
[2020-03-01] MEDS: Furosemide 20 MG TABLET PO SCH (07:49)
[2020-03-01] MEDS: cefTRIAXone 1,000 MG in Water for inj. (sterile) 10 ML IVP SCH (07:51)
[2020-03-01] MEDS: MetroNIDAZOLE 500 MG/100 ML 500 MG/100 ML BAG IVPB SCH ×3 (07:55→23:15)
[2020-03-01] MEDS: Nicotine 21 MG PATCH.TD24 TD SCH (08:48)
[2020-03-01 09:35] LABS: Ferritin 617 ng/mL (20-250); Iron 25 mcg/dL (65-175); Transferrin < 75 mg/dL (203-362)
[2020-03-01 09:39] LABS: Folate 12.4 ng/mL (3.0-16.0)
[2020-03-01] MEDS ORDERED: *HR* Phytonadione 5 MG TABLET PO ONE (11:03)
[2020-03-01] MEDS: Iron Sucrose Complex 250 MG in 0.9 % Sodium Chloride 250 ML IVPB SCH (11:58)
[2020-03-01] MEDS: Nitrofurantoin (BID) 100 MG CAPSULE PO SCH (15:16)
[2020-03-01] MEDS: Ondansetron ODT 4 MG TAB.RAPDIS SL PRN (18:01)
[2020-03-01] MEDS: Melatonin 3 MG TABLET PO SCH (19:57)
[2020-03-02] MEDS: Albumin 25% 25gram/100mL 25 GM/100 ML IV.SOLN IVPB SCH ×3 (00:20→16:14)
[2020-03-02 04:14] LABS: Basophils % 0.2 %; Eosinophils % 0.2 %; Hematocrit 21.6 % (37.5-50.1); Immature Granulocytes % 0.7 % (0-4); Lymphocytes # 2.5 K/mcL (0.6-4.6); Lymphocytes % 27.1 %; Mean Corpuscular HGB Conc 32.4 g/dL (31.6-35.5); Mean Corpuscular Hemoglobin 32.4 pg (28.0-33.3); Mean Platelet Volume 8.5 fL (9.4-12.4); Monocytes # 0.5 K/mcL (0.0-1.3); Monocytes % 5.9 %; Neutrophils # 6.1 K/mcL (1.6-8.9); Platelet Count 215 K/mcL (140-400); Red Blood Count 2.16 M/mcL (4.19-5.50); Red Cell Distribution Width 18.4 % (11.5-14.5); Segmented Neutrophils % 65.9 %; White Blood Count 9.2 K/mcL (4.3-11.1)
[2020-03-02 04:18] LABS: INR 2.9; Prothrombin Time 32.7 Seconds (9.4-12.1)
[2020-03-02 04:34] LABS: Alanine Aminotransferase 11 Units/L (7-52); Albumin 2.9 g/dL (3.5-5.7); Albumin/Globulin Ratio 1.8 (1.1-2.2); Alkaline Phosphatase 71 Units/L (34-104); Aspartate Amino Transferase 12 Units/L (13-39); BUN/Creatinine Ratio 8 (6-26); Blood Urea Nitrogen 2 mg/dL (6-20); Calcium 7.5 mg/dL (8.6-10.3); Carbon Dioxide 21 mEq/L (23-29); Chloride 100 mEq/L (98-107); Globulin 1.6 g/dL (2.4-3.5); Glucose 108 mg/dL (70-105); Osmolality,Calculated 263 (280-300); Potassium 2.9 mEq/L (3.5-5.1); Sodium 128 mEq/L (136-145); Total Protein 4.5 g/dL (6.4-8.9); eGFR For African Americans > 60 (> 60); eGFR For Non-African Americans > 60 (> 60)
[2020-03-02] MEDS ORDERED: *HR* Phytonadione 5 MG TABLET PO ONE (07:15)
[2020-03-02] MEDS: Vitamin B Complex/Vit C/Vit E 1 EACH TABLET PO SCH (07:59)
[2020-03-02] MEDS: Thiamine (B-1) 100 MG TABLET PO SCH (07:59)
[2020-03-02] MEDS: Nicotine 21 MG PATCH.TD24 TD SCH (08:00)
[2020-03-02] MEDS: Folic Acid 1 MG TABLET PO SCH (08:00)
[2020-03-02] MEDS: Furosemide 20 MG TABLET PO SCH (08:00)
[2020-03-02] MEDS: MetroNIDAZOLE 500 MG/100 ML 500 MG/100 ML BAG IVPB SCH ×2 (08:01→16:14)
[2020-03-02] MEDS: cefTRIAXone 1,000 MG in Water for inj. (sterile) 10 ML IVP SCH (08:04)
[2020-03-02] MEDS: Nitrofurantoin (BID) 100 MG CAPSULE PO SCH ×2 (08:04→16:14)
[2020-03-02] MEDS: Cholecalciferol (D-3) 1,000 UNIT (25MCG) TABLET PO SCH (08:05)
[2020-03-02] MEDS: Ondansetron ODT 4 MG TAB.RAPDIS SL PRN ×2 (08:20→21:37)
[2020-03-02] MEDS ORDERED: 0.9 % Sodium Chloride 250 ML ONE ×2 (09:48→10:55)
[2020-03-02] MEDS: Iron Sucrose Complex 250 MG in 0.9 % Sodium Chloride 250 ML IVPB SCH (10:03)
[2020-03-02 13:30] LABS: Fluid Source for Albumin PERITONEAL FL
[2020-03-02] MEDS ORDERED: Potassium Chloride Elixir 20 MEQ/15 ML UDC PO ONE (14:09)
[2020-03-02 15:16] LABS: RBC,Peritoneal Fluid < 0.002 M/mcL
[2020-03-02 15:21] LABS: Appearance of Peritoneal Fl CLEAR (Clear)
[2020-03-02 15:39] LABS: Amylase,Peritoneal Fluid 29 Units/L (No Ref Range); Glucose,Peritoneal Fluid 188 mg/dL (No Ref Range); LDH,Peritoneal Fluid 41 Units/L (No Ref Range); Total Protein,Peritoneal Fluid < 3.0 g/dL
[2020-03-02 15:52] LABS: Basophils,Peritoneal Fluid 0 %; Eosinophils,Peritoneal Fluid 0 %
[2020-03-02 16:48] LABS: INR 2.8; Prothrombin Time 32.1 Seconds (9.4-12.1)
[2020-03-02] MEDS ORDERED: *HR* Phytonadione 10 MG/ML AMPUL SQ ONE (17:45)
[2020-03-02] MEDS: Melatonin 3 MG TABLET PO SCH (21:37)
[2020-03-02] MEDS: metroNIDAZOLE 500 MG TABLET PO SCH (21:37)
[2020-03-03] MEDS: Albumin 25% 25gram/100mL 25 GM/100 ML IV.SOLN IVPB SCH ×3 (00:43→16:41)
[2020-03-03 06:25] LABS: Basophils % 0.2 %; Eosinophils % 0.1 %; Hematocrit 22.9 % (37.5-50.1); Hemoglobin 7.9 g/dL (12.9-16.9); Immature Granulocytes % 0.5 % (0-4); Lymphocytes # 2.2 K/mcL (0.6-4.6); Lymphocytes % 19.6 %; Mean Corpuscular HGB Conc 34.5 g/dL (31.6-35.5); Mean Corpuscular Hemoglobin 33.3 pg (28.0-33.3); Mean Corpuscular Volume 96.6 fL (83.0-100.0); Mean Platelet Volume 8.2 fL (9.4-12.4); Monocytes # 0.8 K/mcL (0.0-1.3); Monocytes % 6.9 %; Nucleated Red Blood Cells 0.2 /100 WBC (0); Platelet Count 182 K/mcL (140-400); Red Blood Count 2.37 M/mcL (4.19-5.50); Red Cell Distribution Width 18.8 % (11.5-14.5); Segmented Neutrophils % 72.7 %; White Blood Count 11.1 K/mcL (4.3-11.1)
[2020-03-03 06:32] LABS: INR 3.4; Prothrombin Time 39.1 Seconds (9.4-12.1)
[2020-03-03 06:46] LABS: Alanine Aminotransferase 9 Units/L (7-52); Albumin 3.1 g/dL (3.5-5.7); Albumin/Globulin Ratio 2.2 (1.1-2.2); Alkaline Phosphatase 63 Units/L (34-104); Aspartate Amino Transferase 14 Units/L (13-39); BUN/Creatinine Ratio 9 (6-26); Bilirubin,Total 1.9 mg/dL (0.3-1.0); Blood Urea Nitrogen 2 mg/dL (6-20); Calcium 7.9 mg/dL (8.6-10.3); Carbon Dioxide 23 mEq/L (23-29); Chloride 100 mEq/L (98-107); Globulin 1.4 g/dL (2.4-3.5); Glucose 111 mg/dL (70-105); Magnesium 1.4 mg/dL (1.6-2.6); Osmolality,Calculated 261 (280-300); Phosphorous 2.3 mg/dL (2.7-4.5); Potassium 3.4 mEq/L (3.5-5.1); Sodium 127 mEq/L (136-145); Total Protein 4.5 g/dL (6.4-8.9); eGFR For African Americans > 60 (> 60); eGFR For Non-African Americans > 60 (> 60)
[2020-03-03] MEDS ORDERED: Potassium Phosphate 44 MEQ in 0.9 % Sodium Chloride 250 ML IVPB ONE (07:12)
[2020-03-03] MEDS: cefTRIAXone 1,000 MG in Water for inj. (sterile) 10 ML IVP SCH (08:21)
[2020-03-03] MEDS: Thiamine (B-1) 100 MG TABLET PO SCH (08:22)
[2020-03-03] MEDS: Cholecalciferol (D-3) 1,000 UNIT (25MCG) TABLET PO SCH (08:22)
[2020-03-03] MEDS: Folic Acid 1 MG TABLET PO SCH (08:22)
[2020-03-03] MEDS: Furosemide 20 MG TABLET PO SCH (08:22)
[2020-03-03] MEDS: Vitamin B Complex/Vit C/Vit E 1 EACH TABLET PO SCH (08:22)
[2020-03-03] MEDS: Nitrofurantoin (BID) 100 MG CAPSULE PO SCH ×2 (08:22→16:41)
[2020-03-03] MEDS: Nicotine 21 MG PATCH.TD24 TD SCH (08:23)
[2020-03-03] MEDS: metroNIDAZOLE 500 MG TABLET PO SCH ×2 (08:24→15:36)
[2020-03-03] MEDS: Iron Sucrose Complex 250 MG in 0.9 % Sodium Chloride 250 ML IVPB SCH (11:11)
[2020-03-03 18:50] VITALS: BP 118/75
== END 2020-03-03 18:54 | disposition critical access hospital (66) | DRG 432 ==
LOC: 2ANU → SUATTDRO 18:26
PROVIDERS: ADMIT Internal Medicine; ATTEND Internal Medicine

== ENCOUNTER 2020-05-01 18:11 | Inpatient (IN) ==
[2020-05-01] MEDS ORDERED: Naloxone 0.4 MG/ML INJ IVP PRN (21:48)
[2020-05-01] MEDS ORDERED: *HR* LORazepam 2 MG/ML VIAL IVP PRN ×3 (21:52)
[2020-05-01] MEDS ORDERED: *HR* Promethazine 25 MG/ML VIAL IVP PRN (21:52)
[2020-05-01 22:30] LABS: Basophils % 0.2 %; Eosinophils % 0.1 %; Hematocrit 21.1 % (37.5-50.1); Immature Granulocytes % 4.4 % (0-4); Lymphocytes # 2.4 K/mcL (0.6-4.6); Lymphocytes % 16.6 %; Mean Corpuscular HGB Conc 33.2 g/dL (31.6-35.5); Mean Corpuscular Hemoglobin 35.4 pg (28.0-33.3); Mean Corpuscular Volume 106.6 fL (83.0-100.0); Mean Platelet Volume 8.3 fL (9.4-12.4); Monocytes # 1.6 K/mcL (0.0-1.3); Monocytes % 10.9 %; Neutrophils # 9.7 K/mcL (1.6-8.9); Platelet Count 176 K/mcL (140-400); Red Blood Count 1.98 M/mcL (4.19-5.50); Red Cell Distribution Width 25.4 % (11.5-14.5); Segmented Neutrophils % 67.8 %; White Blood Count 14.3 K/mcL (4.3-11.1)
[2020-05-01 22:57] LABS: Anisocytosis 1+ (Not Present)
[2020-05-01 23:12] LABS: BUN/Creatinine Ratio 11 (6-26); Blood Urea Nitrogen 5 mg/dL (6-20); Calcium 7.4 mg/dL (8.6-10.3); Carbon Dioxide 16 mEq/L (23-29); Chloride 95 mEq/L (98-107); Glucose 83 mg/dL (70-105); Magnesium 1.5 mg/dL (1.6-2.6); Osmolality,Calculated 244 (280-300); Potassium 4.1 mEq/L (3.5-5.1); eGFR For African Americans > 60 (> 60); eGFR For Non-African Americans > 60 (> 60)
[2020-05-01] MEDS: Nicotine 14 MG PATCH.TD24 TD SCH (23:12)
[2020-05-01] MEDS ORDERED: 0.9 % Sodium Chloride 1,000 ML IVC SCH (23:45)
[2020-05-02 00:34] LABS: Sodium 119 mEq/L (136-145)
[2020-05-02 06:08] LABS: Basophils % 0.3 %; Eosinophils % 0.2 %; Hematocrit 20.4 % (37.5-50.1); Hemoglobin 6.9 g/dL (12.9-16.9); Immature Granulocytes % 4.4 % (0-4); Lymphocytes # 2.3 K/mcL (0.6-4.6); Lymphocytes % 18.2 %; Mean Corpuscular HGB Conc 33.8 g/dL (31.6-35.5); Mean Corpuscular Hemoglobin 35.6 pg (28.0-33.3); Mean Corpuscular Volume 105.2 fL (83.0-100.0); Monocytes # 1.3 K/mcL (0.0-1.3); Monocytes % 10.4 %; Platelet Count 196 K/mcL (140-400); Red Blood Count 1.94 M/mcL (4.19-5.50); Red Cell Distribution Width 24.9 % (11.5-14.5); Segmented Neutrophils % 66.5 %; White Blood Count 12.7 K/mcL (4.3-11.1)
[2020-05-02 06:13] LABS: Neutrophils # 8.5 K/mcL (1.6-8.9)
[2020-05-02] MEDS ORDERED: 0.9 % Sodium Chloride 250 ML IVC SCH ×2 (06:15→11:26)
[2020-05-02 06:21] LABS: INR 1.8; Prothrombin Time 20.6 Seconds (9.4-12.1)
[2020-05-02 06:23] LABS: Anisocytosis 3+ (Not Present); Macrocytosis Present (Not Present); Microcytosis Present (Not Present)
[2020-05-02 06:24] LABS: Activated Partial Thrombo Time 39.8 Seconds (26.0-36.0); Platelet Estimate Normal (Normal); Poikilocytosis 1+ (Not Present); Polychromasia 1+ (Not Present); Target Cells 1+ (Not Present)
[2020-05-02 06:29] LABS: BUN/Creatinine Ratio 10 (6-26); Blood Urea Nitrogen 5 mg/dL (6-20); Calcium 7.6 mg/dL (8.6-10.3); Carbon Dioxide 20 mEq/L (23-29); Chloride 96 mEq/L (98-107); Glucose 75 mg/dL (70-105); Osmolality,Calculated 248 (280-300); Sodium 121 mEq/L (136-145); eGFR For African Americans > 60 (> 60); eGFR For Non-African Americans > 60 (> 60)
[2020-05-02 06:31] LABS: Alanine Aminotransferase 32 Units/L (7-52); Albumin/Globulin Ratio 0.6 (1.1-2.2); Alkaline Phosphatase 174 Units/L (34-104); Aspartate Amino Transferase 51 Units/L (13-39); BUN/Creatinine Ratio 11 (6-26); Bilirubin,Direct 3.6 mg/dL (0.0-0.2); Bilirubin,Indirect 3.9 mg/dL (0.0-1.0); Bilirubin,Total 7.5 mg/dL (0.3-1.0); Blood Urea Nitrogen 5 mg/dL (6-20); Calcium 7.7 mg/dL (8.6-10.3); Carbon Dioxide 20 mEq/L (23-29); Chloride 96 mEq/L (98-107); Globulin 3.3 g/dL (2.4-3.5); Glucose 75 mg/dL (70-105); Magnesium 1.5 mg/dL (1.6-2.6); Osmolality,Calculated 246 (280-300); Sodium 120 mEq/L (136-145); Total Protein 5.3 g/dL (6.4-8.9); eGFR For African Americans > 60 (> 60); eGFR For Non-African Americans > 60 (> 60)
[2020-05-02] MEDS: Nicotine 14 MG PATCH.TD24 TD SCH (08:24)
[2020-05-02] MEDS ORDERED: cefTRIAXone 1,000 MG in Water for inj. (sterile) 10 ML IVP SCH (09:00)
[2020-05-02] MEDS ORDERED: Pantoprazole 40 MG VIAL IVP SCH (09:00)
[2020-05-02] MEDS ORDERED: Lactulose Oral Soln 20 GM/30 ML UDC PO SCH (09:00)
[2020-05-02] MEDS ORDERED: *HR* LORazepam 2 MG/ML VIAL IVP PRN ×3 (11:26)
[2020-05-02] MEDS ORDERED: Naloxone 0.4 MG/ML INJ IVP PRN (11:26)
[2020-05-02] MEDS ORDERED: *HR* Promethazine 25 MG/ML VIAL IVP PRN (11:26)
[2020-05-02] MEDS ORDERED: Thiamine (B-1) 100 MG, Folic Acid 1 MG, MVI, adult with vitamin K 10 ML in 0.9 % Sodi... IVPB SCH (18:00)
[2020-05-02] MEDS: Thiamine (B-1) 100 MG, Folic Acid 1 MG, MVI, adult with vitamin K 10 ML in 0.9 % Sodi... IVPB SCH (18:14)
[2020-05-02] MEDS: Lactulose Oral Soln 20 GM/30 ML UDC PO SCH (21:10)
[2020-05-02] MEDS ORDERED: *HR* OxyCODONE Immed Rel 5 MG TABLET PO ONE (21:16)
[2020-05-03 03:49] LABS: BUN/Creatinine Ratio 13 (6-26); Blood Urea Nitrogen 7 mg/dL (6-20); Calcium 7.7 mg/dL (8.6-10.3); Carbon Dioxide 19 mEq/L (23-29); Chloride 94 mEq/L (98-107); Glucose 218 mg/dL (70-105); Osmolality,Calculated 251 (280-300); Potassium 4.1 mEq/L (3.5-5.1); Sodium 118 mEq/L (136-145); eGFR For African Americans > 60 (> 60); eGFR For Non-African Americans > 60 (> 60)
[2020-05-03] MEDS: Lactulose Oral Soln 20 GM/30 ML UDC PO SCH ×2 (08:28→21:02)
[2020-05-03] MEDS ORDERED: Pantoprazole 40 MG VIAL IVP SCH (09:00)
[2020-05-03] MEDS ORDERED: cefTRIAXone 1,000 MG in Water for inj. (sterile) 10 ML IVP SCH (09:00)
[2020-05-03] MEDS ORDERED: Nicotine 14 MG PATCH.TD24 TD SCH (09:00)
[2020-05-03] MEDS ORDERED: *HR* Heparin 5,000 UNIT/ML VIAL SQ SCH (18:00)
[2020-05-03] MEDS: Thiamine (B-1) 100 MG, Folic Acid 1 MG, MVI, adult with vitamin K 10 ML in 0.9 % Sodi... IVPB SCH (18:27)
[2020-05-04 00:51] LABS: Sodium 119 mEq/L (136-145)
[2020-05-04 01:07] LABS: Hematocrit 25.1 % (37.5-50.1); Hemoglobin 8.6 g/dL (12.9-16.9); Mean Corpuscular HGB Conc 34.3 g/dL (31.6-35.5); Mean Corpuscular Hemoglobin 35.5 pg (28.0-33.3); Mean Corpuscular Volume 103.7 fL (83.0-100.0); Platelet Count 161 K/mcL (140-400); Red Blood Count 2.42 M/mcL (4.19-5.50); Red Cell Distribution Width 24.6 % (11.5-14.5)
[2020-05-04 01:08] LABS: Alanine Aminotransferase 28 Units/L (7-52); Albumin 1.9 g/dL (3.5-5.7); Albumin/Globulin Ratio 0.6 (1.1-2.2); Alkaline Phosphatase 185 Units/L (34-104); Aspartate Amino Transferase 39 Units/L (13-39); BUN/Creatinine Ratio 15 (6-26); Basophils % 0.3 %; Bilirubin,Total 5.3 mg/dL (0.3-1.0); Blood Urea Nitrogen 6 mg/dL (6-20); Calcium 7.3 mg/dL (8.6-10.3); Carbon Dioxide 19 mEq/L (23-29); Chloride 96 mEq/L (98-107); Eosinophils % 0.3 %; Globulin 3.3 g/dL (2.4-3.5); Glucose 142 mg/dL (70-105); Immature Granulocytes % 2.6 % (0-4); Lymphocytes # 2.6 K/mcL (0.6-4.6); Lymphocytes % 21.7 %; Magnesium 1.8 mg/dL (1.6-2.6); Monocytes # 1.6 K/mcL (0.0-1.3); Monocytes % 12.9 %; Neutrophils # 7.5 K/mcL (1.6-8.9); Osmolality,Calculated 248 (280-300); Phosphorous 2.1 mg/dL (2.7-4.5); Segmented Neutrophils % 62.2 %; Total Protein 5.2 g/dL (6.4-8.9); eGFR For African Americans > 60 (> 60); eGFR For Non-African Americans > 60 (> 60)
[2020-05-04 01:25] LABS: Anisocytosis 2+ (Not Present); Macrocytosis Present (Not Present); Platelet Estimate Normal (Normal); Smudge Cells Present (Not Present)
[2020-05-04 03:18] VITALS: BP 103/76
== END 2020-05-04 06:00 | disposition short-term general hospital (02) | DRG 432 ==
LOC: ICNU 20:08 → 3ANU 05-02 12:19
PROVIDERS: ADMIT Family Medicine; ATTEND Family Medicine